=== PATIENT | female | born 1955 | race Caucasian/White ===

== ENCOUNTER 2020-10-21 13:09 | Emergency (ER) | payer OTHER ==
--- NOTE | 2020-10-21 15:11 | RAD REPORT ---
EXAM DESCRIPTION: RAD - Foot Right 3 View - 10/21/2020 3:01 pm CLINICAL HISTORY: PAIN COMPARISON: No comparisons FINDINGS: Mild hallux valgus deformity is seen. Slightly impacted fracture of the distal aspect of t he proximal phalanx of the fifth toe is seen. Mild surrounding soft tissue swelling.
--- NOTE | 2020-10-21 15:12 | ER ---
Nurse's Notes [facility] Name: Danelle Gray Age: 64 yrs Sex: Female : 1955 Arrival Date: 10/21/2020 Time: 13:18 Bed 5 Private MD: Diagnosis: Displaced fracture of proximal phalanx of right lesser toe(s) Presentation: 10/21 13:30 Chief complaint: Patient states: Hit R foot 5th digit on coffee table last night at ll1 2200. Pain and swelling to digit since. Coronavirus screen: Client denies travel out of the [place] in the last 14 days. At this time, the client does not indicate any symptoms associated with coronavirus-19. Ebola Screen: Patient denies travel to an Ebola-affected area in the 21 days before illness onset. Initial Sepsis Screen: Does the patient meet any 2 criteria? No. Patient's initial sepsis screen is negative. Does the patient have a suspected source of infection? Yes: Bone or joint infection. Risk Assessment: Do you want to hurt yourself or someone else? Patient reports no desire to harm self or others. Onset of symptoms was October 20, 2020. 13:30 Method Of Arrival: Ambulatory ll1 13:30 Acuity: GUILHERME 3 ll1 Triage Assessment: 13:32 General: Appears in no apparent distress. Behavior is calm, cooperative, appropriate ll1 for age. Pain: Complains of pain in R foot 5th digit Quality of pain is described as aching, Aggravated by increased activity. Musculoskeletal: Circulation, motion, and sensation intact. Capillary refill < 3 seconds, Range of motion: intact in all extremities, Reports pain in R foot 5th digit. Injury Description: Bruise. Historical: - Allergies: 13:30 No Known Allergies; ll1 - PMHx: 13:30 None; ll1 - PSHx: 13:30 Hysterectomy; Appendectomy; ll1 - Immunization history:: Flu vaccine is up to date. - Social history:: Smoking status: Patient reports the use of cigarette tobacco products, smokes one pack cigarettes per day. Screenin:45 Abuse screen: Denies threats or abuse. Nutritional screening: No deficits noted. aa5 Tuberculosis screening: No symptoms or risk factors identified. Fall Risk None identified. Assessment: 14:45 General: Appears comfortable, Behavior is calm, cooperative. Pain: Complains of pain in aa5 right fifth toe Pain currently is 5 out of 10 on a pain scale. Quality of pain is described as aching, throbbing. Neuro: Level of Consciousness is awake, alert, obeys commands, Oriented to person, place, time, situation, Appropriate for age. Cardiovascular: Patient's skin is warm and dry. Respiratory: Airway is patent Respiratory effort is even, unlabored, Respiratory pattern is regular, symmetrical. GI: No signs and/or symptoms were reported involving the gastrointestinal system. : No signs and/or symptoms were reported regarding the genitourinary system. EENT: No signs and/or symptoms were reported regarding the EENT system. Derm: Skin is pink, warm \T\ dry. Musculoskeletal: Range of motion: intact in all extremities, Redness and mild swelling noted to right fifth toe Reports pain in right fifth toe. 15:30 Reassessment: 4th and 5th R toes matt taped per MOLDER SWEEP. aa5 15:32 Reassessment: Patient is alert, oriented x 3, equal unlabored respirations, skin aa5 warm/dry/pink. Vital Signs: 13:30 Pulse 70; Resp 16; Temp 97.0; Pulse Ox 98% ; ll1 13:32 BP 185 / 106; Weight 65.77 kg; Height 5 ft. 4 in. (162.56 cm); Pain 5/10; ll1 15:28 BP 181 / 110; Pulse 75; Resp 18 S; Pulse Ox 99% on R/A; aa5 13:32 Body Mass Index 24.89 (65.77 kg, 162.56 cm) ll1 15:28 MOLDER SWEEP notified of elevated BP before d/c home aa5 ED Course: 13:18 Patient arrived in ED. rg4 13:29 Arm band placed on. ll1 13:31 Triage completed. ll1 14:04 Brigida Aguirre FNP-C is [facility]. kb 14:04 Fitz Thornton MD is Attending Physician. kb 14:29 Natalya Bejarano, RN is Primary Nurse. aa5 15:01 Foot Right 3 View XRAY In Process Unspecified. EDMS 15:30 No provider procedures requiring assistance completed. Patient did not have IV access aa5 during this emergency room visit. Administered Medications: No medications were administered Outcome: 15:11 Discharge ordered by . kb 15:31 Discharged to home ambulatory. aa5 15:31 Condition: good 15:31 Discharge instructions given to patient, Instructed on discharge instructions, follow up and referral plans. Demonstrated understanding of instructions, follow-up care, Pt instructed to continue to monitor BP at home and to f/u with PCP regarding elevated BP 15:32 Patient left the ED. Signatures: Dispatcher [employer] EDVT Brigida Aguirre, VISHAL-C SOLAR INSTALLER TECHNICIAN-Natalya Fitzpatrick RN RN aa5 Majo Sanders, RN RN Adrianna Ponce4 Joan Bee RN RN ll1
--- NOTE | 2020-10-21 15:12 | EDPHYS ---
Physician Documentation [facility] Name: Danelle Gray Age: 64 yrs Sex: Female : 1955 Arrival Date: 10/21/2020 Time: 13:18 Bed 5 Private MD: ED Physician Fitz Thornton HPI: 10/21 15:10 This 64 yrs old Female presents to ER via Ambulatory with complaints of Toe kb Injury. 15:10 The patient presents with an injury, pain, swelling, tenderness. The complaints affect kb the right foot. Context: The problem was sustained at home, resulted from stubbing toe on furniture. the patient can fully bear weight, the patient is able to ambulate. Onset: The symptoms/episode began/occurred yesterday. Modifying factors: The symptoms are alleviated by nothing, the symptoms are aggravated by movement. Associated signs and symptoms: Pertinent positives: swelling, Pertinent negatives: calf tenderness, fever, nausea, numbness, rash, tingling, vomiting, warmth, weakness. Severity of symptoms: At their worst the symptoms were mild, in the emergency department the symptoms are unchanged. The patient has not experienced similar symptoms in the past. The patient has not recently seen a physician. Historical: - Allergies: 13:30 No Known Allergies; ll1 - PMHx: 13:30 None; ll1 - PSHx: 13:30 Hysterectomy; Appendectomy; ll1 - Immunization history:: Flu vaccine is up to date. - Social history:: Smoking status: Patient reports the use of cigarette tobacco products, smokes one pack cigarettes per day. ROS: 15:06 Constitutional: Negative for fever, chills, and weight loss, Cardiovascular: Negative kb for chest pain, palpitations, and edema, Respiratory: Negative for shortness of breath, cough, wheezing, and pleuritic chest pain, Abdomen/GI: Negative for abdominal pain, nausea, vomiting, diarrhea, and constipation, Skin: Negative for injury, rash, and discoloration, Neuro: Negative for headache, weakness, numbness, tingling, and seizure. 15:06 MS/extremity: Positive for injury or acute deformity, decreased range of motion, erythema, pain, swelling, tenderness, of the right fifth toe. Exam: 15:09 Constitutional: This is a well developed, well nourished patient who is awake, alert, kb and in no acute distress. Head/Face: Normocephalic, atraumatic. Chest/axilla: Normal chest wall appearance and motion. Nontender with no deformity. No lesions are appreciated. Cardiovascular: Regular rate and rhythm with a normal S1 and S2. No gallops, murmurs, or rubs. Normal PMI, no JVD. No pulse deficits. Respiratory: Lungs have equal breath sounds bilaterally, clear to auscultation and percussion. No rales, rhonchi or wheezes noted. No increased work of breathing, no retractions or nasal flaring. Abdomen/GI: Soft, non-tender, with normal bowel sounds. No distension or tympany. No guarding or rebound. No evidence of tenderness throughout. Skin: Warm, dry with normal turgor. Normal color with no rashes, no lesions, and no evidence of cellulitis. Neuro: Awake and alert, GCS 15, oriented to person, place, time, and situation. Cranial nerves II-XII grossly intact. Motor strength 5/5 in all extremities. Sensory grossly intact. Cerebellar exam normal. Normal gait. 15:09 Musculoskeletal/extremity: Extremities: grossly normal except: noted in the right fifth toe: decreased ROM, erythema, pain, swelling, tenderness, ROM: limited active range of motion due to pain, Circulation is intact in all extremities. Sensation intact. Vital Signs: 13:30 Pulse 70; Resp 16; Temp 97.0; Pulse Ox 98% ; ll1 13:32 BP 185 / 106; Weight 65.77 kg; Height 5 ft. 4 in. (162.56 cm); Pain 5/10; ll1 15:28 BP 181 / 110; Pulse 75; Resp 18 S; Pulse Ox 99% on R/A; aa5 13:32 Body Mass Index 24.89 (65.77 kg, 162.56 cm) ll1 15:28 BOTTOM STOP ATTACHER notified of elevated BP before d/c home aa5 MDM: 14:29 Patient medically screened. kb 15:08 Data reviewed: vital signs, nurses notes. Data interpreted: Pulse oximetry: on room air kb is 98 %. Interpretation: normal. Test interpretation: by ED physician or midlevel provider: plain radiologic studies, fracture of fifth proximal phalanx right foot. Counseling: I had a detailed discussion with the patient and/or guardian regarding: the historical points, exam findings, and any diagnostic results supporting the discharge/admit diagnosis, radiology results, the need for outpatient follow up, a orthopedic surgeon, to return to the emergency department if symptoms worsen or persist or if there are any questions or concerns that arise at home. 10/21 13:39 Order name: Foot Right 3 View XRAY; Complete Time: 15:13 kb 10/21 15:12 Order name: [facility]. Order: matt tape 4th and 5th toes ; Complete Time: 15:32 kb Administered Medications: No medications were administered Disposition: 10/22 14:22 Co-signature as Attending Physician, Fitz Thornton MD I agree with the assessment and kdr plan of care. Disposition: 10/21/20 15:11 Discharged to Home. Impression: Displaced fracture of proximal phalanx of right lesser toe(s). - Condition is Stable. - Discharge Instructions: Toe Fracture, [id number]. - Medication Reconciliation Form, Thank You Letter, Antibiotic Education, Prescription Opioid Use form. - Follow up: Emergency Department; When: As needed; Reason: Worsening of condition. Follow up: Private Physician; When: 2 - 3 days; Reason: Recheck today's complaints, Continuance of care, Re-evaluation by your physician. Signatures: Dispatcher [employer] EDMS Brigida Aguirre, LAPPER-C LAPPER-Jimmyb Fitz Thornton MD MD [facility] Majo Sanders RN RN Joan Myers RN RN ll1 Corrections: (The following items were deleted from the chart) 10/21 15:32 15:11 10/21/2020 15:11 Discharged to Home. Impression: Displaced fracture of proximal hb phalanx of right lesser toe(s). Condition is Stable. Forms are Medication Reconciliation Form, Thank You Letter, Antibiotic Education, Prescription Opioid Use. Follow up: Emergency Department; When: As needed; Reason: Worsening of condition. Follow up: Private Physician; When: 2 - 3 days; Reason: Recheck today's complaints, Continuance of care, Re-evaluation by your physician. kb
[2020-10-21 15:39] VITALS: TEMP 97; O2SAT 98
[2020-10-21 15:40] VITALS: BP 185/106
== END 2020-10-21 15:32 | disposition home or self-care (01) ==
LOC: ER 13:09
DX: S92.511A Displaced fracture of proximal phalanx of right lesser toe(s), initial encounter for closed fracture (principal); W22.03XA Walked into furniture, initial encounter; Y93.9 Activity, unspecified; Y92.9 Unspecified place or not applicable; F17.210 Nicotine dependence, cigarettes, uncomplicated
CPT/HCPCS: 99283

== ENCOUNTER 2022-04-06 08:34 | Emergency (ER) | payer BC ==
[2022-04-06] MEDS ORDERED: DIPHENHYDRAMINE 50 MG/ML VIAL ONE (09:05)
[2022-04-06] MEDS ORDERED: METHYLPREDNISOLONE 125 MG INJ ONE (09:05)
[2022-04-06] MEDS ORDERED: FAMOTIDINE 20 MG/2 ML VIAL IV ONE (09:05)
[2022-04-06] MEDS ORDERED: HYDRALAZINE HCL 20 MG/ML VIAL ONE (10:37)
--- NOTE | 2022-04-06 11:02 | ER ---
Nurse's Notes [facility] Name: Danelle Gray Age: 66 yrs Sex: Female : 1955 Arrival Date: 04/06/2022 Time: 08:35 Bed 7 Private MD: Diagnosis: Acute Allergic Reaction, Hypertenisve Heart Disease Presentation: 04/06 08:45 Chief complaint: Patient states: noticed a stinging felling yesterday near Right hip vg1 and later saw a whelp; states the next day notice a whelp on inner Left thigh and on back of Left shoulder. Denies SOB or sore throat. Coronavirus screen: Vaccine status: Patient reports receiving the 2nd dose of the covid vaccine. Client denies travel out of the [place] in the last 14 days. Ebola Screen: Patient denies exposure to infectious person. Patient denies travel to an Ebola-affected area in the 21 days before illness onset. Onset: The symptoms/episode began/occurred yesterday. Anaphylaxis evaluation, no signs or symptoms of anaphylaxis were noted. Initial Sepsis Screen: Does the patient meet any 2 criteria? No. Patient's initial sepsis screen is negative. Does the patient have a suspected source of infection? No. Patient's initial sepsis screen is negative. Risk Assessment: Do you want to hurt yourself or someone else? Patient reports no desire to harm self or others. Onset of symptoms was April 05, 2022. 08:45 Method Of Arrival: Ambulatory vg1 08:45 Acuity: GUILHERME 4 vg1 Triage Assessment: 08:45 General: Appears in no apparent distress. comfortable, Behavior is calm, cooperative. vg1 Pain: Denies pain. EENT: Throat is clear. Respiratory: Airway is patent Respiratory effort is even, unlabored. Derm: appears to have raised whelps on Right leg, left leg and left shoulder, red in color and warm to touch. Historical: - Allergies: 08:42 No Known Allergies; ph - Immunization history:: Client reports receiving the 2nd dose of the Covid vaccine. - Social history:: Smoking status: Patient reports the use of cigarette tobacco products, smokes one pack cigarettes per day. Screenin:55 Abuse screen: Denies threats or abuse. Denies injuries from another. Nutritional ph screening: No deficits noted. Tuberculosis screening: No symptoms or risk factors identified. Fall Risk None identified. Assessment: 08:52 General: Appears in no apparent distress. comfortable, well groomed, Behavior is calm, ph cooperative, appropriate for age, Denies fever, feeling ill. Pain: Denies pain. Neuro: Level of Consciousness is awake, alert, obeys commands, Oriented to person, place, time, situation. Cardiovascular: Capillary refill < 3 seconds in bilateral fingers Patient's skin is warm and dry. Respiratory: Airway is patent Respiratory effort is even, unlabored, Respiratory pattern is regular, symmetrical, Breath sounds are clear bilaterally. Denies shortness of breath. GI: No signs and/or symptoms were reported involving the gastrointestinal system. Derm: Skin is healthy with good turgor, Skin is pink, warm \T\ dry. Rash noted that is red, raised, on right femoral area, right inguinal area, right iliac crest and right hip. Derm: Rash noted that is red, raised, on left inner thigh. Derm: Rash noted that is red, raised, on left scapular area. Musculoskeletal: Circulation, motion, and sensation intact. Range of motion: intact in all extremities. 10:52 Reassessment: Patient appears in no apparent distress at this time. Patient and/or ph family updated on plan of care and expected duration. Pain level reassessed. Patient is alert, oriented x 3, equal unlabored respirations, skin warm/dry/pink. Redness to thighs has improved, slight redness and swelling still noted Patient denies pain at this time. Vital Signs: 08:45 Pulse 90; Resp 16; Temp 98.3; Pulse Ox 100% ; Weight 65.77 kg; Height 5 ft. 4 in. vg1 (162.56 cm); Pain 0/10; 08:52 BP 221 / 104; ph 10:40 BP 170 / 102; Pulse 76; Resp 15; Pulse Ox 97% ; jl7 08:45 Body Mass Index 24.89 (65.77 kg, 162.56 cm) vg1 ED Course: 08:35 Patient arrived in ED. mr 08:36 Fitz Thornton MD is Attending Physician. kdr 08:42 Shweta Melissa RN is Primary Nurse. ph 08:45 Arm band placed on. vg1 08:48 Triage completed. vg1 08:55 Patient has correct armband on for positive identification. Bed in low position. Call ph light in reach. Side rails up X 1. Pulse ox on. NIBP on. Door closed. Noise minimized. Warm blanket given. 09:10 Inserted saline lock: 22 gauge in right forearm, using aseptic technique. ph 11:17 No provider procedures requiring assistance completed. IV discontinued, intact, ph bleeding controlled, No redness/swelling at site. Pressure dressing applied. Administered Medications: 09:07 Drug: SOLU-Medrol (methylPrednisoLONE) 125 mg Route: IVP; Site: right forearm; ph 10:50 Follow up: Response: No adverse reaction ph 09:08 Drug: Benadryl (diphenhydrAMINE) 25 mg Route: IVP; Site: right forearm; ph 10:50 Follow up: Response: No adverse reaction ph 09:10 Drug: Pepcid (famotidine) 20 mg Route: IVP; Site: right forearm; ph 10:50 Follow up: Response: No adverse reaction ph 10:40 Drug: hydrALAZINE 20 mg Route: IVP; Site: right forearm; ph 11:16 Follow up: Response: No adverse reaction; Blood pressure is lowered ph 11:16 Drug: Lisinopril 20 mg Route: PO; ph 11:17 Follow up: Response: No adverse reaction ph Medication: 08:55 VIS not applicable for this client. ph Outcome: 11:02 Discharge ordered by . kdr 11:17 Discharged to home ambulatory. ph 11:17 Condition: good 11:17 Discharge instructions given to patient, Instructed on discharge instructions, follow up and referral plans. medication usage, Demonstrated understanding of instructions, follow-up care, medications, Prescriptions given X 4. 11:17 Patient left the ED. ph Signatures: Fitz Thornton MD MD kdr Rivera, Janelle Shweta Melissa, RN RN ph Selina Benedict, RN RN jl7 Sury Goldberg, RN RN vg1
--- NOTE | 2022-04-06 11:02 | EDPHYS ---
Physician Documentation [facility] Name: Danelle Gray Age: 66 yrs Sex: Female : 1955 Arrival Date: 04/06/2022 Time: 08:35 Bed 7 Private MD: ED Physician Fitz Thornton HPI: 04/06 09:17 This 66 yrs old Female presents to ER via Ambulatory with complaints of Allergic kdr Reaction. 09:17 This 66 yrs old Female presents to ER via Ambulatory with complaints of Allergic kdr Reaction. 09:17 The patient presents with diffuse swelling, itching, rash, Hives. Onset: The kdr symptoms/episode began/occurred yesterday. Associated signs and symptoms: The patient has no apparent associated signs or symptoms. Possible causes: The patient has no known obvious cause for the symptoms. At home the patient or guardian has treated the symptoms with Benadryl. Severity of symptoms: At their worst the symptoms were mild moderate just prior to arrival, in the emergency department the symptoms are unchanged. The patient has not experienced similar symptoms in the past. The patient has not recently seen a physician. Patient noticed an irritation on the right anterior hip yesterday. Subsequently she started to notice some red raised hives around that area which is subsequently spread to her medial proximal thigh on the left as well as her posterior left shoulder. She denies any shortness of breath or other respiratory difficulty. She has not had symptoms like this before. She is otherwise in her usual state of health. Historical: - Allergies: 08:42 No Known Allergies; ph - Immunization history:: Client reports receiving the 2nd dose of the Covid vaccine. - Social history:: Smoking status: Patient reports the use of cigarette tobacco products, smokes one pack cigarettes per day. ROS: 09:17 Constitutional: Negative for fever, chills, and weight loss, Eyes: Negative for injury, kdr pain, redness, and discharge, ENT: Negative for injury, pain, and discharge, Neck: Negative for injury, pain, and swelling, Cardiovascular: Negative for chest pain, palpitations, and edema, Respiratory: Negative for shortness of breath, cough, wheezing, and pleuritic chest pain, Abdomen/GI: Negative for abdominal pain, nausea, vomiting, diarrhea, and constipation, Back: Negative for injury and pain, : Negative for injury, bleeding, discharge, and swelling, MS/Extremity: Negative for injury and deformity, Neuro: Negative for headache, weakness, numbness, tingling, and seizure activity. Psych: Negative for depression, anxiety, suicide ideation, homicidal ideation, and hallucinations, Allergy/Immunology: Negative for hives, rash, and allergies, Endocrine: Negative for neck swelling, polydipsia, polyuria, polyphagia, and marked weight changes, Hematologic/Lymphatic: Negative for swollen nodes, abnormal bleeding, and unusual bruising. 09:17 Skin: Positive for rash, Negative for abrasions, abscesses, avulsion. Exam: :17 Constitutional: This is a well developed, well nourished patient who is awake, alert, kdr and in no acute distress. Head/Face: Normocephalic, atraumatic. Eyes: Pupils equal round and reactive to light, extra-ocular motions intact. Lids and lashes normal. Conjunctiva and sclera are non-icteric and not injected. Cornea within normal limits. Periorbital areas with no swelling, redness, or edema. Neck: Trachea midline, no thyromegaly or masses palpated, and no cervical lymphadenopathy. Supple, full range of motion without nuchal rigidity, or vertebral point tenderness. No Meningismus. Chest/axilla: Normal chest wall appearance and motion. Nontender with no deformity. No lesions are appreciated. Cardiovascular: Regular rate and rhythm with a normal S1 and S2. No gallops, murmurs, or rubs. Normal PMI, no JVD. No pulse deficits. Respiratory: Lungs have equal breath sounds bilaterally, clear to auscultation and percussion. No rales, rhonchi or wheezes noted. No increased work of breathing, no retractions or nasal flaring. Abdomen/GI: Soft, non-tender, with normal bowel sounds. No distension or tympany. No guarding or rebound. No evidence of tenderness throughout. Back: No spinal tenderness. No costovertebral tenderness. Full range of motion. MS/ Extremity: Pulses equal, no cyanosis. Neurovascular intact. Full, normal range of motion. Neuro: Awake and alert, GCS 15, oriented to person, place, time, and situation. Cranial nerves II-XII grossly intact. Motor strength 5/5 in all extremities. Sensory grossly intact. Cerebellar exam normal. Normal gait. Psych: Awake, alert, with orientation to person, place and time. Behavior, mood, and affect are within normal limits. 09:17 Skin: rash a mild rash is noted, rash can be described as erythematous, macular. Vital Signs: 08:45 Pulse 90; Resp 16; Temp 98.3; Pulse Ox 100% ; Weight 65.77 kg; Height 5 ft. 4 in. vg1 (162.56 cm); Pain 0/10; 08:52 BP 221 / 104; ph 10:40 BP 170 / 102; Pulse 76; Resp 15; Pulse Ox 97% ; jl7 08:45 Body Mass Index 24.89 (65.77 kg, 162.56 cm) vg1 MDM: 11:00 Data reviewed: vital signs, nurses notes. Counseling: I had a detailed discussion with kdr the patient and/or guardian regarding: the historical points, exam findings, and any diagnostic results supporting the discharge/admit diagnosis, lab results, radiology results. ED course: Patient proved with the interventions given. She was feeling much better at time of discharge. She was happy with the care provided the plan for discharge and follow-up.. 11:02 Patient medically screened. kdr Administered Medications: 09:07 Drug: SOLU-Medrol (methylPrednisoLONE) 125 mg Route: IVP; Site: right forearm; ph 10:50 Follow up: Response: No adverse reaction ph 09:08 Drug: Benadryl (diphenhydrAMINE) 25 mg Route: IVP; Site: right forearm; ph 10:50 Follow up: Response: No adverse reaction ph 09:10 Drug: Pepcid (famotidine) 20 mg Route: IVP; Site: right forearm; ph 10:50 Follow up: Response: No adverse reaction ph 10:40 Drug: hydrALAZINE 20 mg Route: IVP; Site: right forearm; ph 11:16 Follow up: Response: No adverse reaction; Blood pressure is lowered ph 11:16 Drug: Lisinopril 20 mg Route: PO; ph 11:17 Follow up: Response: No adverse reaction ph Disposition Summary: 04/06/22 11:02 Discharge Ordered Location: Home kdr Problem: new kdr Symptoms: have improved kdr Condition: Stable kdr Diagnosis - Acute Allergic Reaction, Hypertenisve Heart Disease kdr Followup: kdr - With: Private Physician - When: 2 - 3 days - Reason: If symptoms return, Further diagnostic work-up, Recheck today's complaints, Continuance of care, Re-evaluation by your physician Discharge Instructions: - Discharge Summary Sheet kdr - Hypertension, Adult, [id number] kdr - Allergies, Adult, [id number] kdr Forms: - Medication Reconciliation Form kdr - Thank You Letter kdr Prescriptions: - Benadryl 25 mg Oral Capsule - take 1 capsule by ORAL route every 6 hours As needed; 30 tablet; Refills: 0, kdr Product Selection Permitted - Lisinopril 20 mg Oral Tablet - take 1 tablet by ORAL route once daily; 20 tablet; Refills: 0, Product kdr Selection Permitted - Medrol (Kishan) 4 mg Oral Tablets, Dose Pack - take 1 tablet by ORAL route as directed - follow package instructions; 1 kdr packet; Refills: 0, Product Selection Permitted - Pepcid 20 mg Oral Tablet - take 1 tablet by ORAL route once daily; 20 tablet; Refills: 0, Product kdr Selection Permitted Signatures: Fitz Thornton MD MD kdr Hall, Patricia, RN RN Sury Jaeger RN RN vg1
[2022-04-06] MEDS ORDERED: lisinopriL 20 MG TAB ONE (11:17)
[2022-04-06 11:38] VITALS: TEMP 98.3
[2022-04-06 11:41] VITALS: BP 170/102; O2SAT 97
== END 2022-04-06 11:17 | disposition home or self-care (01) ==
LOC: ER 08:34
DX: R21 Rash and other nonspecific skin eruption (principal); I11.9 Hypertensive heart disease without heart failure; F17.210 Nicotine dependence, cigarettes, uncomplicated
CPT/HCPCS: 96375; 96374; 99284; J0360; J1200; J2930; J3490

== ENCOUNTER 2022-09-22 16:15 | Observation (INO) | payer BC ==
--- OUTSIDE RECORDS SUMMARY | 2022-09-22 16:17 | XMS REPORT | Continuity of Care Document ---
:1955 Author Organization [facility] t Address [address] [place] [address] Dr. Dug[address] [place] [address] Care Team Providers Name Role Phone Unavailable Unavailable Unavailable Problems This patient has no known problems. Allergies, Adverse Reactions, Alerts This patient has no known allergies or adverse reactions. Medications This patient has no known medications. Procedures This patient has no known procedures. Encounters Start End Encounter Admission Attending Care Care Encounter Source Date/Time Date/Time Type Type Clinicians Facility Department ID 2021-11-08 Outpatient [facility] [id number] Common 08:56:03 [facility] Results This patient has no known results.
[2022-09-22] MEDS ORDERED: MAGNESIUM SULFATE 1 gm IVPB 1 GM/100 ML BAG IV ONE (16:54)
[2022-09-22] MEDS ORDERED: LEVALBUTEROL 1.25 MG/3 ML NEB ONE (16:54)
[2022-09-22] MEDS ORDERED: lisinopriL 10 MG TAB ONE (17:23)
[2022-09-22 17:29] LABS: Absolute Lymphocytes (CBC) 0.3 K/uL (0.7-4.9); Hematocrit 48.8 % (36.0-45.0); Lymphocytes % 4.1 % (15.3-44.8); MCV 94.8 fL (80-100); MPV 7.9 fL (7.6-11.3); RBC Red Blood Cell Count 5.15 M/uL (3.86-4.86)
[2022-09-22 17:35] LABS: Protime INR 0.98
--- NOTE | 2022-09-22 17:35 | RAD REPORT ---
EXAM DESCRIPTION: Valentino Single View09/22/2022 5:23 pm CLINICAL HISTORY: Shortness of breath COMPARISON: 2013 FINDINGS: The lungs appear clear of acute infiltrate. The heart is normal size IMPRESSION: No acute abnormalities displayed
[2022-09-22 17:51] LABS: Albumin 4.1 g/dL (3.4-5.0); Bilirubin Direct 0.1 mg/dL (0-0.2); Bilirubin Total 0.4 mg/dL (0.2-1.0); Magnesium 1.9 mg/dL (1.6-2.4); Potassium 3.6 mmol/L (3.5-5.1); Protein, Total 8.3 g/dL (6.4-8.2); Troponin High Sensitivity 10.1 pg/mL (<58.9)
[2022-09-22 18:06] LABS: SARS-COV-2 RT PCR NEGATIVE (NEGATIVE)
[2022-09-22] MEDS ORDERED: OSELTAMIVIR 75 MG CAP PO ONE (18:32)
--- NOTE | 2022-09-22 18:43 | RAD REPORT ---
EXAM DESCRIPTION: CT - Chest For Pe Angio - 09/22/2022 6:33 pm CLINICAL HISTORY: sob COMPARISON: None. TECHNIQUE: Dynamically enhanced axial 3 mm thick images of the chest were obtained during administra tion of <100> mL Isovue 370 IV contrast. Coronal and oblique reconstruction images were generated and reviewed. Exam utilizes a protocol for optimal evaluation of pulmonary arterial tree. Maximum intensity projections 3D imaging was utilized All CT scans are performed using dose optimization technique as appropriate and may include automated exposure control or mA/KV adjustment according to patient size. FINDINGS: A pulmonary embolus is not seen. A thoracic aortic aneurysm is not noted. A pleural effusion is not seen. A pericardial effusion is not seen. A lung consolidation is not present. Moderate COPD IMPRESSION: Negative for a pulmonary embolism.
--- NOTE | 2022-09-22 19:07 | EDPHYS ---
Physician Documentation [facility] Name: Danelle Gray Age: 66 yrs Sex: Female : 1955 Arrival Date: 09/22/2022 Time: 16:18 Bed 3 Private MD: ED Physician Mike Kaye HPI: 09/22 16:45 This 66 yrs old Female presents to ER via Ambulatory with complaints of Shortness Of jmm Breath, O2-92. 16:45 Onset: The symptoms/episode began/occurred gradually. jmm 16:45 Duration: The symptoms are continuous. The patient's shortness of breath is aggravated jmm by nothing, is alleviated by nothing. This is a 66 year old female with a history of htn, that presents to the ED with complaints of cough, congestion beginning yesterday with sob beginning today. Home pulse ox reading was 92%. Denies fever but states having body aches, with an episode of vomiting last night.. Historical: - Allergies: 16:46 No Known Allergies; ph - PMHx: 16:46 Hypertensive disorder; ph - Immunization history:: Adult Immunizations up to date. - Social history:: Smoking status: Patient reports the use of cigarette tobacco products, smokes one pack cigarettes per day. ROS: 16:45 Constitutional: Negative for fever, chills, and weight loss. jmm 16:45 ENT: Positive for sinus congestion. 16:45 Respiratory: Positive for cough, shortness of breath. 16:45 All other systems are negative. Exam: 16:45 Head/Face: atraumatic. Eyes: EOMI, no conjunctival erythema appreciated ENT: Moist jmm Mucus Membranes Neck: Trachea midline, Supple Chest/axilla: Normal chest wall appearance and motion. 16:45 Abdomen/GI: Non distended Back: Normal ROM Skin: General appearance color normal 16:45 Constitutional: The patient appears alert, awake, uncomfortable. 16:45 Cardiovascular: Rate: tachycardic, Rhythm: regular. 16:45 Respiratory: moderate respiratory distress is noted, Respirations: labored breathing, that is mild. 16:45 Musculoskeletal/extremity: ROM: intact in all extremities. 16:45 Skin: Appearance: Color: normal in color. 16:45 Neuro: Motor: is normal. 16:45 Psych: Behavior/mood is pleasant, cooperative. Vital Signs: 16:45 BP 233 / 115; Pulse 107; Resp 24; Temp 98.4; Pulse Ox 93% on R/A; Weight 66.22 kg; ph Height 5 ft. 4 in. (162.56 cm); 17:35 BP 181 / 99; Pulse 104; Resp 35 S; Temp 98.5(O); Pulse Ox 100% on 2 lpm NC; Pain 0/10; kc6 18:40 BP 185 / 86; Pulse 106; Resp 32 S; Pulse Ox 98% on 2 lpm NC; kc6 21:03 BP 131 / 69; Pulse 110; Resp 19 S; Pulse Ox 99% on 2 lpm NC; aa9 16:45 Body Mass Index 25.06 (66.22 kg, 162.56 cm) ph MDM: 16:45 Patient medically screened. [facility] 19:05 Data reviewed: vital signs, nurses notes. Counseling: I had a detailed discussion with [facility] the patient and/or guardian regarding: the historical points, exam findings, and any diagnostic results supporting the discharge/admit diagnosis, lab results, radiology results, the need for further work-up and treatment in the hospital. ED course: I discussed the patient with Ashley Schwarz whom accepted the patient to Dr. Guerrero's service. . 09/22 16:46 Order name: Basic Metabolic Panel; Complete Time: 17:51 [facility] 09/22 16:46 Order name: CBC with Diff; Complete Time: 17:32 [facility] 09/22 16:46 Order name: LFT's; Complete Time: 17:51 [facility] 09/22 16:46 Order name: Magnesium; Complete Time: 17:51 [facility] 09/22 16:46 Order name: NT PRO-BNP; Complete Time: 17:51 [facility] 09/22 16:46 Order name: PT-INR; Complete Time: 17:37 [facility] 09/22 16:46 Order name: Troponin HS; Complete Time: 17:51 [facility] 09/22 16:46 Order name: XRAY Chest (1 view); Complete Time: 17:37 [facility] 09/22 16:46 Order name: Lactate w/ 2H reflex if indic.; Complete Time: 17:57 [facility] 09/22 16:46 Order name: Blood Culture Adult (2) [facility] 09/22 16:50 Order name: COVID-19/FLU A+B; Complete Time: 18:14 [facility] 09/22 17:50 Order name: CT Chest For PE Angio; Complete Time: 18:46 [facility] 09/22 16:46 Order name: EKG; Complete Time: 16:47 [facility] 09/22 16:46 Order name: Cardiac monitoring; Complete Time: 16:58 [facility] 09/22 16:46 Order name: EKG - Nurse/Tech; Complete Time: 19:07 [facility] 09/22 16:46 Order name: IV Saline Lock; Complete Time: 17:20 [facility] 09/22 16:46 Order name: Labs collected and sent; Complete Time: 17:20 [facility] 09/22 16:46 Order name: O2 Per Protocol; Complete Time: 16:58 [facility] 09/22 16:46 Order name: O2 Sat Monitoring; Complete Time: 16:58 [facility] Administered Medications: 16:58 Drug: Xopenex (levalbuterol) (3) 1.25 mg Route: Inhalation; kc6 18:29 Follow up: Response: No adverse reaction kc6 17:33 Drug: Magnesium Sulfate 1 grams Route: IVPB; Infused Over: 1 hrs; Site: right kc6 antecubital; 17:33 Drug: Lisinopril 10 mg Route: PO; kc6 18:28 Follow up: Response: No adverse reaction 6 18:32 Drug: Tamiflu (oseltamivir) 75 mg Route: PO; kc6 19:29 Drug: SOLU-Medrol (methylPrednisoLONE) 125 mg Route: IVP; Site: right antecubital; ll3 Disposition: 09/23 19:40 Co-signature as Attending Physician, Mike Kaye MD. rn Disposition Summary: 09/22/22 19:06 Hospitalization Ordered Hospitalization Status: Observation jm Provider: Sina Geurrero Location: Telemetry/MedSurg (observation) jmm Condition: Stable jmm Problem: new jmm Symptoms: have improved jmm Bed/Room Type: Standard [facility] Room Assignment: 217(09/22/22 19:55) mw Diagnosis - COPD/ Chronic obstructive pulmonary disease with (acute) exacerbation jmm - Influenza jmm Forms: - Medication Reconciliation Form jmm - SBAR form jmm Signatures: Dispatcher [employer] Becky Cordova RN RN Lino Chapa PA PA Mike Ledesma MD MD rn Hall, Patricia, RN RN Danika Ledesma RN RN ll3 Megan Stubbs RN RN kc6 Corrections: (The following items were deleted from the chart) 09/22 19:43 19:06 [facility] 19:55 19:[address] [place] [address]
--- NOTE | 2022-09-22 19:07 | ER ---
Nurse's Notes [facility] Name: Danelle Gray Age: 66 yrs Sex: Female : 1955 Arrival Date: 09/22/2022 Time: 16:18 Bed 3 Private MD: Diagnosis: COPD/ Chronic obstructive pulmonary disease with (acute) exacerbation;Influenza Presentation: 09/22 16:45 Chief complaint: Patient states: Vomiting yesterday, cough, congestion, SOB, ph generalized weakness, no fevers. Coronavirus screen: Vaccine status: Patient reports receiving the 2nd dose of the covid vaccine. Ebola Screen: No symptoms or risks identified at this time. Initial Sepsis Screen: Does the patient meet any 2 criteria? No. Patient's initial sepsis screen is negative. Does the patient have a suspected source of infection? Yes: Productive cough/pneumonia. Risk Assessment: Do you want to hurt yourself or someone else? Patient reports no desire to harm self or others. Onset of symptoms was September 22, 2022. 16:45 Method Of Arrival: Ambulatory ph 16:45 Acuity: GUILHERME 2 ph Triage Assessment: 20:27 Respiratory: Onset: The symptoms/episode began/occurred gradually, the patient has aa9 moderate shortness of breath. Historical: - Allergies: 16:46 No Known Allergies; ph - PMHx: 16:46 Hypertensive disorder; ph - Immunization history:: Adult Immunizations up to date. - Social history:: Smoking status: Patient reports the use of cigarette tobacco products, smokes one pack cigarettes per day. Screenin:33 [facility] ED Fall Risk Assessment (Adult) History of falling in the last 3 months, kc6 including since admission No falls in past 3 months (0 pts) Confusion or Disorientation No (0 pts) Intoxicated or Sedated No (0 pts) Impaired Gait No (0 pts) Mobility Assist Device Used No (0 pt) Altered Elimination No (0 pt) Score/Fall Risk Level 0 - 2 = Low Risk. Abuse screen: Denies threats or abuse. Denies injuries from another. Nutritional screening: No deficits noted. Tuberculosis screening: No symptoms or risk factors identified. 20:26 Humpty Dumpty Scale Fall Assessment Tool (age< 18yrs) Age 13 years and above (1 pt) aa9 Gender Female (1 pt) Diagnosis Alteration in oxygenation (respiratory diagnosis, dehydration, anemia, anorexia, syncope/dizziness, etc) (3 pts). Fall Risk No fall in past 12 months (0 pts). Assessment: 17:34 General: Appears in no apparent distress. uncomfortable, Behavior is calm, cooperative, kc6 appropriate for age. Pain: Denies pain. Neuro: Suresh Agitation-Sedation Scale (RASS): 0 - Alert and Calm Level of Consciousness is awake, alert, obeys commands, Oriented to person, place, time, situation, Appropriate for age. Cardiovascular: Heart tones S1 S2 present Capillary refill < 3 seconds Rhythm is sinus tachycardia. Respiratory: Reports shortness of breath cough that is dry, Airway is patent Trachea midline Respiratory effort is even, labored, Respiratory pattern is symmetrical, tachypnea Breath sounds with wheezes bilaterally. GI: No signs and/or symptoms were reported involving the gastrointestinal system. : No signs and/or symptoms were reported regarding the genitourinary system. EENT: No signs and/or symptoms were reported regarding the EENT system. Derm: No signs and/or symptoms reported regarding the dermatologic system. Skin is intact, Skin is pink, warm \T\ dry. Musculoskeletal: No signs and/or symptoms reported regarding the musculoskeletal system. Circulation, motion, and sensation intact. Capillary refill < 3 seconds, Range of motion: intact in all extremities. 18:00 Reassessment: Lino MARTE reported no need for second blood culture. jd3 18:34 Reassessment: Patient appears in no apparent distress at this time. No changes from kc6 previously documented assessment. Patient and/or family updated on plan of care and expected duration. Pain level reassessed. Patient is alert, oriented x 3, equal unlabored respirations, skin warm/dry/pink. 20:25 Reassessment: Patient appears in no apparent distress at this time. report provided to aa9 2nd floor charge nurse. General: Appears in no apparent distress. comfortable. Pain: Denies pain. Neuro: Level of Consciousness is awake, alert, obeys commands, Oriented to person, place, time, situation, Appropriate for age. Respiratory: Airway is patent Respiratory effort is even, labored. 21:04 Reassessment: Patient appears in no apparent distress at this time. pt taken to room aa9 217 via wheelchair with nurse on 2 LPM O2, pt stable understands needs for admission. Vital Signs: 16:45 BP 233 / 115; Pulse 107; Resp 24; Temp 98.4; Pulse Ox 93% on R/A; Weight 66.22 kg; ph Height 5 ft. 4 in. (162.56 cm); 17:35 BP 181 / 99; Pulse 104; Resp 35 S; Temp 98.5(O); Pulse Ox 100% on 2 lpm NC; Pain 0/10; kc6 18:40 BP 185 / 86; Pulse 106; Resp 32 S; Pulse Ox 98% on 2 lpm NC; kc6 21:03 BP 131 / 69; Pulse 110; Resp 19 S; Pulse Ox 99% on 2 lpm NC; aa9 16:45 Body Mass Index 25.06 (66.22 kg, 162.56 cm) ph ED Course: 16:18 Patient arrived in ED. mr 16:23 Lino Eckert PA is PHCP. jmm 16:23 Mike Kaye MD is Attending Physician. jmm 16:46 Triage completed. ph 16:47 Arm band placed on Patient placed in an exam room. ph 16:58 Megan Stbubs, RN is Primary Nurse. kc6 17:20 COVID-19/FLU A+B Sent. kc6 17:20 Lactate w/ 2H reflex if indic. Sent. kc6 17:20 Basic Metabolic Panel Sent. kc6 17:20 CBC with Diff Sent. kc6 17:20 LFT's Sent. kc6 17:20 Magnesium Sent. kc6 17:20 NT PRO-BNP Sent. kc6 17:20 PT-INR Sent. kc6 17:20 Troponin HS Sent. kc6 17:20 Inserted saline lock: 22 gauge in right antecubital area, using aseptic technique. kc6 Blood collected. 17:25 XRAY Chest (1 view) In Process Unspecified. EDMS 17:41 Patient has correct armband on for positive identification. Bed in low position. Call kc6 light in reach. Side rails up X2. Adult w/ patient. 18:20 Inserted saline lock: 22 gauge in left antecubital area, using aseptic technique. kc6 ,using aseptic technique. started by CT. 18:35 CT Chest For PE Angio In Process Unspecified. EDMS 19:06 Sina Guerrero is Hospitalizing Provider. jmm 20:26 No provider procedures requiring assistance completed. Patient admitted, IV remains in aa9 place. Administered Medications: 16:58 Drug: Xopenex (levalbuterol) (3) 1.25 mg Route: Inhalation; kc6 18:29 Follow up: Response: No adverse reaction kc6 17:33 Drug: Magnesium Sulfate 1 grams Route: IVPB; Infused Over: 1 hrs; Site: right kc6 antecubital; 17:33 Drug: Lisinopril 10 mg Route: PO; kc6 18:28 Follow up: Response: No adverse reaction kc6 18:32 Drug: Tamiflu (oseltamivir) 75 mg Route: PO; kc6 19:29 Drug: SOLU-Medrol (methylPrednisoLONE) 125 mg Route: IVP; Site: right antecubital; ll3 Medication: 20:26 VIS not applicable for this client. aa9 Outcome: 19:06 Decision to Hospitalize by Provider. jolanta 20:26 Admitted to Med/surg accompanied by tech, via wheelchair, room 217, with chart, Report aa9 called to charge nurse 20:26 Condition: stable 20:26 Instructed on the need for admit. 21:05 Patient left the ED. aa9 Signatures: Dispatcher [employer] EDMS Lino Eckert PA PA jm Cuellar, Janelle mr MelissaShweta, RN El Leyva ph D, RN RN jd3 Loubet, Lynsea, RN RN ll3 Theresa Flynn RN RN aaMegan Aldrich RN RN kc6
[2022-09-22] MEDS ORDERED: METHYLPREDNISOLONE 125 MG INJ ONE (19:23)
--- NOTE | 2022-09-22 19:43 | P.HP ---
Certification for Inpatient Patient admitted to: Observation With expected LOS: <2 Midnights Patient will require the following post-hospital care: None Practitioner: I am a practitioner with admitting privileges, knowledge of patient current condition, hospital course, and medical plan of care. Services: Services provided to patient in accordance with Admission requirements found in Title 42 Section 412.3 of the Code of Federal Regulations Patient History Date of Service: 09/22/22 Reason for admission: Influenza, Hypoxia, COPD History of Present Illness: Patient is a 66 year old female with history of hypertension who presented to the ED with complaints of shortness of breath, congestion, cough. She was noted to be saturating 93% on room air, tachycardic, tachypneic, and hypertensive. Tested positive for influenza A. CTA chest showed COPD without PE or consolidation. Patient was unaware of a COPD diagnosis. She does smoke 1 pack/day. She was given tamiflu, solumedrol, breathing treatment, magnesium and antihypertensives in the ED. She is still requiring supplemental O2 although reports feeling significantly improved. ED provider wishes to admit patient for further management/observation. Allergies No Known Allergies Allergy (Verified 04/27/14 16:38) Home medications list reviewed: Yes Home Medications: Hydrocodone 7.5/APAP 325 [Asotin 7.5/325 mg*] 1 tab PO Q4HP PRN #0 tab 05/03/14 Levofloxacin [Levaquin] 750 mg PO DAILY #10 tablet 05/03/14 - Past Medical/Surgical History Diabetic: No -: Hypertension -: COPD -: Hysterectomy Psychosocial/ Personal History: Patient lives at home with her family. - Family History Father -: Hypertension - Social History Smoking Status: Current every day smoker Alcohol use: Yes CD- Drugs: No Caffeine use: Yes Place of Residence: Home Review of Systems General: Weakness ENT: Nose Congestion Respiratory: Cough, Shortness of Breath Physical Examination - Vital Signs Temperature: 98.5 F Blood Pressure: 185/86 Pulse: 106 Respirations: 32 Pulse Ox (%): 98 (2L NC) - Physical Exam General: Alert, In no apparent distress HEENT: Atraumatic, PERRLA, EOMI, Sclerae nonicteric Neck: Supple, 2+ carotid pulse no bruit, No LAD, Without JVD or thyroid abnormality Respiratory: Expiratory wheezes Cardiovascular: Regular rate/rhythm, Normal S1 S2 Gastrointestinal: Normal bowel sounds, No tenderness Musculoskeletal: No tenderness Integumentary: No rashes Neurological: Normal speech, Normal strength at 5/5 x4 extr, Normal tone, Normal affect - Studies Laboratory Data (last 24 hrs) 09/22/22 17:14: PT 10.8, INR 0.98 09/22/22 17:14: WBC 8.20, Hgb 16.3 H, Hct 48.8 H, Plt Count 253 09/22/22 17:14: Sodium 136, Potassium 3.6, BUN 12, Creatinine 0.76, Glucose 100, Magnesium 1.9, Total Bilirubin 0.4, AST 31, ALT 32, Alkaline Phosphatase 96 Assessment and Plan - Problems (Diagnosis) (1) Acute respiratory failure with hypoxia Current Visit: No Status: Acute (2) Influenza A Current Visit: No Status: Acute (3) Hypertension Current Visit: No Status: Chronic Qualifiers: Hypertension type: primary hypertension Qualified Code(s): I10 - Essential (primary) hypertension (4) COPD (chronic obstructive pulmonary disease) Current Visit: No Status: Chronic Qualifiers: COPD type: unspecified COPD Qualified Code(s): J44.9 - Chronic obstructive pulmonary disease, unspecified - Plan Patient is admitted for observation for management of hypoxia secondary to influenza/COPD. Continue tamiflu, supplemental O2, PRN breathing treatments, antitussives, and guanfenisin. Blood pressure has been high, will likely need medication adjustment on discharge. Hydralazine PRN. Monitor and replete electrolytes per protocol. Reconcile and continue home medications. Lovenox for VTE prophylaxis. Full code Discharge Plan: Home Plan to discharge in: 24 Hours - Advance Directives Does patient have a Living Will: No Does patient have a Durable POA for Healthcare: No - Code Status/Comfort Care Code Status Assessed: Yes Code Status: Full Code Physician Review: Patient Assessed, Agree with Above Assessment and Plan Critical Care: No Time Spent Managing Pts Care (In Minutes): 50
[2022-09-22] MEDS ORDERED: ONDANSETRON 4 MG/2 ML VIAL IV PRN (20:21)
[2022-09-22] MEDS ORDERED: IPRATROPIUM BROM 0.5MG/2.5ML NEB PRN (20:21)
[2022-09-22] MEDS ORDERED: ALBUTEROL 2.5 MG/3 ML NEB SOL NEB PRN (20:21)
[2022-09-22] MEDS ORDERED: NICOTINE 14 MG/PAT TD PRN (20:21)
[2022-09-22] MEDS ORDERED: HYDRALAZINE HCL 20 MG/ML VIAL IV PRN (20:21)
[2022-09-22] MEDS: NA CHLORIDE 0.9% 1,000 ML IV SCH (21:57)
[2022-09-22] MEDS: ACETAMINOPHEN 500 MG TAB PO PRN (22:01)
[2022-09-22] MEDS: GUAIFENESIN 600 MG SA TAB PO PRN (22:02)
[2022-09-22] MEDS: BENZONATATE 100 MG CAP PO PRN (22:02)
[2022-09-22 23:11] VITALS: BMI 25.0
[2022-09-22] MEDS: OSELTAMIVIR 75 MG CAP PO SCH (23:34)
[2022-09-23 01:09] LABS: Specific Gravity > 1.030 (1.005-1.030); Urine Bacteria <20 /HPF (<20); Urine Bilirubin NEGATIVE (Negative); Urine Blood 1+ (Negative); Urine Clarity Clear (Clear); Urine Color Light-Yellow (Yellow); Urine Glucose NEGATIVE (Negative); Urine Protein NEGATIVE (Negative); Urine RBC <5 /HPF (None Seen); Urine Urobilinogen Normal (Normal); Urine pH 5.5 (5.0-7.0)
[2022-09-23 04:12] LABS: Absolute Lymphocytes (CBC) 0.3 K/uL (0.7-4.9); Lymphocytes % 4.1 % (15.3-44.8); MCV 94.9 fL (80-100); MPV 8.1 fL (7.6-11.3); RBC Red Blood Cell Count 4.53 M/uL (3.86-4.86)
[2022-09-23 04:37] LABS: Magnesium 2.3 mg/dL (1.6-2.4); Phosphorus 3.5 mg/dL (2.5-4.9); Thyroid Stimulating Hormone 0.253 uIU/mL (0.358-3.740)
[2022-09-23] MEDS ORDERED: lisinopriL 10 MG TAB PO SCH (09:00)
[2022-09-23] MEDS ORDERED: ENOXAPARIN 40 MG/0.4 ML SQ SCH (09:00)
[2022-09-23] MEDS: OSELTAMIVIR 75 MG CAP PO SCH (09:10)
[2022-09-23] MEDS: BENZONATATE 100 MG CAP PO PRN (09:14)
[2022-09-23] MEDS: NA CHLORIDE 0.9% 1,000 ML IV SCH ×2 (09:41→12:24)
[2022-09-23] MEDS: ACETAMINOPHEN 500 MG TAB PO PRN (12:30)
[2022-09-23] MEDS: GUAIFENESIN 600 MG SA TAB PO PRN (12:30)
--- NOTE | 2022-09-23 16:30 | P.DS ---
Admission Date: 09/22/22 Discharge Date: 09/23/22 Disposition: ROUTINE DISCHARGE Discharge Condition: FAIR Reason for Admission: Influenza, Hypoxia, COPD - Problems (1) Acute respiratory failure with hypoxia Current Visit: No Status: Acute (2) Influenza A Current Visit: No Status: Acute (3) COPD (chronic obstructive pulmonary disease) Current Visit: No Status: Chronic Qualifiers: COPD type: unspecified COPD Qualified Code(s): J44.9 - Chronic obstructive pulmonary disease, unspecified (4) Hypertension Current Visit: No Status: Chronic Qualifiers: Hypertension type: primary hypertension Qualified Code(s): I10 - Essential (primary) hypertension Brief History of Present Illness: Patient is a 66 year old female with history of hypertension who presented to the ED with complaints of shortness of breath, congestion, cough. She was noted to be saturating 93% on room air, tachycardic, tachypneic, and hypertensive. Tested positive for influenza A. CTA chest showed COPD without PE or consolidation. Patient was unaware of a COPD diagnosis. She does smoke 1 pack/day. She was given tamiflu, solumedrol, breathing treatment, magnesium and antihypertensives in the ED. She is still requiring supplemental O2 although reports feeling significantly improved. Patient hospitalized for further management. Hospital Course: Patient placed under observation on the medical floor and treated for influenza with Tamiflu. She was also treated for COPD exacerbation with bronchodilators, and hydrated with IV fluid. Patient respiratory symptoms improved. She remained stable on room air. She also reports improvement in her shortness of breath. Vitals are stable, patient is deemed stable for discharge. She is prescribed Tamiflu to continue treatment for influenza, Advair and albuterol inhaler for COPD. She is informed to follow with Dr. Moralez for further evaluation for COPD. Vital Signs/Physical Exam: Temp Pulse Resp BP Pulse Ox 97.9 F 76 16 153/78 H 95 09/23/22 12:00 09/23/22 12:00 09/23/22 12:00 09/23/22 12:00 09/23/22 12:00 General: Alert, In no apparent distress, Oriented x2 HEENT: Mucous membr. moist/pink Neck: Supple, JVD not distended Respiratory: Clear to auscultation bilaterally, Normal air movement Cardiovascular: Regular rate/rhythm, Normal S1 S2 Gastrointestinal: Soft and benign, Non-distended Musculoskeletal: No swelling Integumentary: No rashes Neurological: Normal strength at 5/5 x4 extr Laboratory Data at Discharge: WBC 6.20 K/uL (4.3-10.9) 09/23/22 03:29 Hgb 14.4 g/dL (12.0-15.0) D 09/23/22 03:29 Hct 43.0 % (36.0-45.0) 09/23/22 03:29 Plt Count 254 K/uL (152-406) 09/23/22 03:29 PT 10.8 SECONDS (9.5-12.5) 09/22/22 17:14 INR 0.98 09/22/22 17:14 Sodium 136 mmol/L (136-145) 09/23/22 03:29 Potassium 4.0 mmol/L (3.5-5.1) 09/23/22 03:29 BUN 15 mg/dL (7-18) 09/23/22 03:29 Creatinine 0.80 mg/dL (0.55-1.02) 09/23/22 03:29 Glucose 154 mg/dL (74-106) H 09/23/22 03:29 Phosphorus 3.5 mg/dL (2.5-4.9) 09/23/22 03:29 Magnesium 2.3 mg/dL (1.6-2.4) 09/23/22 03:29 Total Bilirubin 0.4 mg/dL (0.2-1.0) 09/22/22 17:14 AST 31 U/L (15-37) 09/22/22 17:14 ALT 32 U/L (13-56) 09/22/22 17:14 Alkaline Phosphatase 96 U/L (45-117) 09/22/22 17:14 Triglycerides 113 mg/dL (<150) 09/23/22 03:29 Cholesterol 212 mg/dL (<200) H 09/23/22 03:29 HDL Cholesterol 66 mg/dL (40-60) H 09/23/22 03:29 Cholesterol/HDL Ratio 3.21 09/23/22 03:29 Home Medications: lisinopriL [Prinivil*] 10 mg PO DAILY 09/22/22 Albuterol Inhaler [Ventolin Inhaler*] 2 puff IH Q6H PRN #1 inh 09/23/22 Benzonatate [Tessalon Perle*] 100 mg PO TID PRN #30 cap 09/23/22 Fluticasone/Salmeterol [Advair 250-50 Diskus] 1 each IH BID #1 kit 09/23/22 Oseltamivir [Tamiflu*] 75 mg PO BID #9 cap 09/23/22 New Medications: Fluticasone/Salmeterol [Advair 250-50 Diskus] 1 each IH BID #1 kit Oseltamivir [Tamiflu*] 75 mg PO BID #9 cap Benzonatate [Tessalon Perle*] 100 mg PO TID PRN #30 cap PRN Reason: Cough Albuterol Inhaler [Ventolin Inhaler*] 2 puff IH Q6H PRN #1 inh PRN Reason: Shortness Of Breath Diet: AHA Activity: Ad ori Followup: Obi Alanis MD [ACTIVE - CAN ADMIT] - (Within 2 weeks.)
[2022-09-23 17:14] VITALS: BP 174/79; TEMP 97.6
[2022-09-23 17:16] VITALS: O2SAT 95
== END 2022-09-23 17:44 | disposition home or self-care (01) ==
LOC: ER 16:15 → ERHOLD 19:34 → 2ND 19:46
PROVIDERS: ADMIT Internal Medicine; ATTEND Internal Medicine
DX: J96.01 Acute respiratory failure with hypoxia (principal); J09.X2 Influenza due to identified novel influenza A virus with other respiratory manifestations; I10 Essential (primary) hypertension; J44.9 Chronic obstructive pulmonary disease, unspecified; Z20.822 Contact with and (suspected) exposure to COVID-19
CPT/HCPCS: 87040; 85025 ×2; 81001; 80048 ×2; 36415; 83735 ×2; 84100; 85610; 80061; 80076; 83605; 84443; 84484; 83880; 0240U; 71275; 71045; 94010; 94760; 96375; 96374; 99285; Q9967; J7614; J7613; J7644; J3475; J7030 ×2; J2930; G0378; J1650

== ENCOUNTER 2023-08-07 07:33 | Emergency (ER) | payer BC ==
--- OUTSIDE RECORDS SUMMARY | 2023-08-07 07:36 | XMS REPORT | Continuity of Care Document ---
:1955 Author Organization [facility] t Address [address] [place] [address] Care Team Providers Name Role Phone Werner Love Attending Clinician Unavailable Problems This patient has no known problems. Allergies, Adverse Reactions, Alerts This patient has no known allergies or adverse reactions. Medications This patient has no known medications. Procedures This patient has no known procedures. Encounters Start End Encounter Admission Attending Care Care Encounter Source Date/Time Date/Time Type Type Clinicians Facility Department ID 2023-05-14 Outpatient Love, [facility] [id number] Common 07:56:00 Werner [id number] [facility] 2023-02-04 Outpatient Love, [facility] [id number] Common 08:32:01 Werner [id number] [facility] 2022-10-19 [facility]patient [facility] [id number] Common 16:00:01 [id number] [facility] 2021-11-08 Outpatient [facility] [id number] Common 08:56:03 [facility] Results This patient has no known results.
[2023-08-07 08:01] LABS: Absolute Lymphocytes (CBC) 1.1 K/uL (0.7-4.9); Hematocrit 47.4 % (36.0-45.0); Lymphocytes % 15.2 % (15.3-44.8); MCV 93.6 fL (80-100); MPV 7.5 fL (7.6-11.3); Platelets 283 thou/uL (152-406); RBC Red Blood Cell Count 5.06 M/uL (3.86-4.86)
[2023-08-07] MEDS ORDERED: HYDRALAZINE HCL 25 MG TABLET ONE (08:06)
[2023-08-07 08:21] LABS: Albumin 3.8 g/dL (3.4-5.0); Bilirubin Direct 0.1 mg/dL (0-0.2); Bilirubin Indirect, Calculated 0.4 mg/dL (0.2-0.8); Bilirubin Total 0.5 mg/dL (0.2-1.0); Potassium 3.8 mEq/L (3.5-5.1); Protein, Total 7.4 g/dL (6.4-8.2); Troponin High Sensitivity 3.5 pg/mL (<58.9)
--- NOTE | 2023-08-07 08:39 | ER ---
Nurse's Notes [facility] Name: Danelle Gray Age: 67 yrs Sex: Female : 1955 Arrival Date: 08/07/2023 Time: 07:33 Bed 20 Private MD: Diagnosis: Essential (primary) hypertension Presentation: 08/07 07:44 Chief complaint: Patient states: HTN for a few days. New Coreg isn't helping. BP ll1 244/117 just [employer]. Coronavirus screen: Vaccine status: Patient reports receiving the 2nd dose of the covid vaccine. Client denies travel out of the [place] in the last 14 days. At this time, the client does not indicate any symptoms associated with coronavirus-19. Ebola Screen: Patient denies travel to an Ebola-affected area in the 21 days before illness onset. Initial Sepsis Screen: Does the patient meet any 2 criteria? No. Patient's initial sepsis screen is negative. Does the patient have a suspected source of infection? No. Patient's initial sepsis screen is negative. Risk Assessment: Do you want to hurt yourself or someone else? Patient reports no desire to harm self or others. Onset of symptoms was August 02, 2023. 07:44 Method Of Arrival: Ambulatory ll1 07:44 Acuity: GUILHERME 2 ll1 Triage Assessment: 07:45 General: Appears in no apparent distress. Behavior is calm, cooperative, appropriate ll1 for age. General: Reports high BP. Pain: Denies pain. Historical: - Allergies: 07:43 No Known Allergies; ll1 - PMHx: 07:43 Hypertensive disorder; Chronic obstructive lung disease; ll1 - PSHx: 07:43 Appendectomy; ll1 - Immunization history:: Adult Immunizations up to date. - Social history:: Smoking status: Patient reports the use of cigarette tobacco products, smokes one-half pack cigarettes per day. - Family history:: not pertinent. Screenin:47 [facility] ED Fall Risk Assessment (Adult) Score/Fall Risk Level 0 - 2 = Low Risk ll1 Oriented to surroundings, Maintained a safe environment, Educated pt \T\ family on fall prevention, incl call for assistance when getting out of bed, Hourly rounding (assess needs \T\ fall precautionary measures) done. Abuse screen: Denies threats or abuse. Nutritional screening: No deficits noted. Tuberculosis screening: No symptoms or risk factors identified. Assessment: 07:58 General: Appears in no apparent distress. comfortable, Behavior is calm, cooperative, ld1 appropriate for age. Pain: Denies pain. Neuro: Level of Consciousness is awake, alert, obeys commands, Oriented to person, place, time, situation, Appropriate for age. Cardiovascular: Capillary refill < 3 seconds Patient's skin is warm and dry. Rhythm is sinus bradycardia. Respiratory: Airway is patent Respiratory effort is even, unlabored. GI: Abdomen is flat, non-distended. : No signs and/or symptoms were reported regarding the genitourinary system. EENT: No signs and/or symptoms were reported regarding the EENT system. Derm: No signs and/or symptoms reported regarding the dermatologic system. Musculoskeletal: No signs and/or symptoms reported regarding the musculoskeletal system. 08:22 Reassessment: Patient appears in no apparent distress at this time. No changes from ld1 previously documented assessment. Patient and/or family updated on plan of care and expected duration. Pain level reassessed. Patient is alert, oriented x 3, equal unlabored respirations, skin warm/dry/pink. 08:50 Reassessment: No changes from previously documented assessment. Patient and/or family ll1 updated on plan of care and expected duration. Pain level reassessed. Patient is alert, oriented x 3, equal unlabored respirations, skin warm/dry/pink. Vital Signs: 07:44 BP 218 / 101; Pulse 61; Resp 16; Temp 97.6; Pulse Ox 100% ; Weight 70.31 kg; Height 5 ll1 ft. 4 in. ; Pain 0/10; 07:58 BP 256 / 99; Pulse 52; Resp 18; Pulse Ox 98% on R/A; Pain 0/10; ld1 08:22 BP 183 / 85; Pulse 54; Resp 18; Pulse Ox 96% on R/A; ld1 08:32 BP 183 / 85; ld1 08:50 BP 173 / 95; Pulse 55; Resp 18; Pulse Ox 96% ; ll1 07:44 Body Mass Index 26.61 (70.31 kg, 162.56 cm) ll1 07:44 Pain Scale: Adult ll1 07:58 Pain Scale: Adult ld1 07:58 Notified ERP of BP ld1 ED Course: 07:36 Patient arrived in ED. mg5 07:43 Arm band placed on Patient placed in an exam room, on a stretcher. ll1 07:44 Onel Pillai MD is Attending Physician. rt 07:45 Triage completed. ll1 07:46 Joan Bee RN is Primary Nurse. ll1 07:47 Patient has correct armband on for positive identification. Call light in reach. Client ll1 placed on continuous cardiac and pulse oximetry monitoring. NIBP monitoring applied. personnel monitor on. 07:58 Door closed. Noise minimized. Warm blanket given. ld1 07:58 No provider procedures requiring assistance completed. Inserted saline lock: 20 gauge ld1 in right forearm, using aseptic technique. Blood collected. 08:50 IV discontinued, intact, bleeding controlled, No redness/swelling at site. Pressure ll1 dressing applied. 08:51 Provided Education on: n/a. ll1 Administered Medications: 07:56 Drug: HydrALAZINE PO 50 mg PO once Route: PO; ll1 08:51 Follow up: Response: No adverse reaction ll1 Medication: 07:47 VIS not applicable for this client. ll1 Outcome: 08:38 Discharge ordered by . rt 08:50 Discharged to home ambulatory, ll1 08:50 Condition: stable 08:50 Discharge instructions given to patient, Instructed on discharge instructions, follow up and referral plans. medication usage, Demonstrated understanding of instructions, follow-up care, medications, Prescriptions given X 1, 08:51 Patient left the ED. ll1 Signatures: Joan Bee RN RN ll1 Maral Gorman RN RN ld1 Onel Pillai MD MD rt [place] mg5
--- NOTE | 2023-08-07 08:39 | EDPHYS ---
Physician Documentation [facility] Name: Danelle Gray Age: 67 yrs Sex: Female : 1955 Arrival Date: 08/07/2023 Time: 07:33 Bed 20 Private MD: ED Physician Onel Pillai HPI: 08/07 07:54 This 67 yrs old Female presents to ER via Ambulatory with complaints of High Blood rt Pressure. 07:54 Patient presents to the ED with hypertension. Patient has no symptoms at this time. Has rt been going back and forth to her primary care's office to get the right combination of blood pressure medications. Denies other acute complaints at this time, symptoms are moderate severity, no other aggravating or alleviating factors.. Historical: - Allergies: 07:43 No Known Allergies; ll1 - PMHx: 07:43 Hypertensive disorder; Chronic obstructive lung disease; ll1 - PSHx: 07:43 Appendectomy; ll1 - Immunization history:: Adult Immunizations up to date. - Social history:: Smoking status: Patient reports the use of cigarette tobacco products, smokes one-half pack cigarettes per day. - Family history:: not pertinent. ROS: 07:54 Constitutional: Negative for fever, chills, and weight loss, Cardiovascular: Negative rt for chest pain, palpitations, and edema, Respiratory: Negative for shortness of breath, cough, wheezing, and pleuritic chest pain, Abdomen/GI: Negative for abdominal pain, nausea, vomiting, diarrhea, and constipation, MS/Extremity: Negative for injury and deformity, Skin: Negative for injury, rash, and discoloration, Neuro: Negative for headache, weakness, numbness, tingling, and seizure, Psych: Negative for depression, anxiety, suicide ideation, homicidal ideation, and hallucinations, Exam: 07:54 Constitutional: This is a well developed, well nourished patient who is awake, alert, rt and in no acute distress. Head/Face: Normocephalic, atraumatic. Chest/axilla: Normal chest wall appearance and motion. Nontender with no deformity. No lesions are appreciated. Cardiovascular: Regular rate and rhythm with a normal S1 and S2. No gallops, murmurs, or rubs. Normal PMI, no JVD. No pulse deficits. Respiratory: Lungs have equal breath sounds bilaterally, clear to auscultation and percussion. No rales, rhonchi or wheezes noted. No increased work of breathing, no retractions or nasal flaring. Abdomen/GI: Soft, non-tender, with normal bowel sounds. No distension or tympany. No guarding or rebound. No evidence of tenderness throughout. Skin: Warm, dry with normal turgor. Normal color with no rashes, no lesions, and no evidence of cellulitis. MS/ Extremity: Pulses equal, no cyanosis. Neurovascular intact. Full, normal range of motion. Neuro: Awake and alert, GCS 15, oriented to person, place, time, and situation. Cranial nerves II-XII grossly intact. Motor strength 5/5 in all extremities. Sensory grossly intact. Cerebellar exam normal. Normal gait. Psych: Awake, alert, with orientation to person, place and time. Behavior, mood, and affect are within normal limits. 07:54 ECG was reviewed by the Attending Physician. Vital Signs: 07:44 BP 218 / 101; Pulse 61; Resp 16; Temp 97.6; Pulse Ox 100% ; Weight 70.31 kg; Height 5 ll1 ft. 4 in. ; Pain 0/10; 07:58 BP 256 / 99; Pulse 52; Resp 18; Pulse Ox 98% on R/A; Pain 0/10; ld1 08:22 BP 183 / 85; Pulse 54; Resp 18; Pulse Ox 96% on R/A; ld1 08:32 BP 183 / 85; ld1 08:50 BP 173 / 95; Pulse 55; Resp 18; Pulse Ox 96% ; ll1 07:44 Body Mass Index 26.61 (70.31 kg, 162.56 cm) ll1 07:44 Pain Scale: Adult ll1 07:58 Pain Scale: Adult ld1 07:58 Notified ERP of BP ld1 MDM: 07:44 Patient medically screened. rt 08:40 Differential diagnosis: hypertensive crisis, Essential hypertension, heart failure, rt renal disease. Data reviewed: vital signs, nurses notes. Consideration of Admission/Observation Escalation of care including admission/observation considered. Care significantly affected by the following chronic conditions: Hypertension. Counseling: I had a detailed discussion with the patient and/or guardian regarding the historical points, exam findings, and any diagnostic results supporting the discharge/admit diagnosis, the presence of at least one elevated blood pressure reading (>120/80) during this emergency department visit, lab results, the need for outpatient follow up. Response to treatment: the patient's symptoms have markedly improved after treatment. 08/07 07:51 Order name: Basic Metabolic Panel; Complete Time: 08:24 rt 08/07 07:51 Order name: CBC with Diff; Complete Time: 08:24 rt 08/07 07:51 Order name: LFT's; Complete Time: 08:24 rt 08/07 07:51 Order name: Magnesium; Complete Time: 08:24 rt 08/07 07:51 Order name: NT PRO-BNP; Complete Time: 08:24 rt 08/07 07:51 Order name: Troponin HS; Complete Time: 08:24 rt 08/07 07:51 Order name: EKG; Complete Time: 07:52 rt 08/07 07:51 Order name: Cardiac monitoring; Complete Time: 07:57 rt 08/07 07:51 Order name: EKG - Nurse/Tech; Complete Time: 07:51 rt 08/07 07:51 Order name: IV Saline Lock; Complete Time: 07:56 rt 08/07 07:51 Order name: Labs collected and sent; Complete Time: 07:56 rt 08/07 07:51 Order name: O2 Per Protocol; Complete Time: 07:51 rt 08/07 07:51 Order name: O2 Sat Monitoring; Complete Time: 07:51 rt EC:54 Rate is 58 beats/min. Rhythm is regular, Normal Sinus Rhythm with No ectopy, LVH rt present. QRS [place] is Normal. LA interval is normal. QRS interval is normal. QT interval is normal. No Q waves. Administered Medications: 07:56 Drug: HydrALAZINE PO 50 mg PO once Route: PO; ll1 08:51 Follow up: Response: No adverse reaction ll1 Disposition Summary: 08/07/23 08:38 Discharge Ordered Notes: Location: Home rt Problem: an acute exacerbation rt Symptoms: have improved rt Condition: Stable rt Diagnosis - Essential (primary) hypertension rt Followup: rt - With: Private Physician - When: 5 - 6 days - Reason: Discharge Instructions: - Discharge Summary Sheet rt - Hypertension, Adult rt Forms: - Medication Reconciliation Form rt - Thank You Letter rt - Antibiotic Education rt - Prescription Opioid Use rt - Patient Portal Instructions rt - Leadership Thank You Letter rt Prescriptions: - Hydralazine 25 mg Oral tablet - take 1 tablet ORAL route 4 times per day with food; 120 tablet; Refills: 0, rt Product Selection Permitted Signatures: Dispatcher [employer] Joan Fernando RN RN ll1 Onel Pillai MD MD rt
[2023-08-07 09:33] VITALS: TEMP 97.6
[2023-08-07 09:40] VITALS: O2SAT 96
[2023-08-07 09:41] VITALS: BP 173/95
--- NOTE | 2023-08-08 09:50 | EKG ---
Test Date: 2023-08-07 Test Time: 07:47:37 [employer]: ZOE MEASUREMENT RESULTS: Intervals: Rate: 58 IL: 118 QRSD: 86 QT: 418 QTc: 410 [place]: P: 66 IL: 118 QRS: 86 T: 102 INTERPRETIVE STATEMENTS: Sinus bradycardia Nonspecific T wave abnormality Abnormal ECG Compared to ECG 04/27/2014 14:57:55 T-wave abnormality now present Sinus tachycardia no longer present ST (T wave) deviation no longer present Possible ischemia no longer present Electronically Signed On 08-08-23 09:46:30 CDT by Amish Schulz
== END 2023-08-07 08:51 | disposition home or self-care (01) ==
LOC: ER 07:33
DX: I10 Essential (primary) hypertension (principal); J44.9 Chronic obstructive pulmonary disease, unspecified; F17.210 Nicotine dependence, cigarettes, uncomplicated
CPT/HCPCS: 36415; 80048; 80076; 83735; 83880; 84484; 85025; 93005; 99284

== ENCOUNTER 2023-08-08 08:14 | Emergency (ER) | payer BC ==
[2023-08-08] MEDS ORDERED: HYDRALAZINE HCL 25 MG TABLET ONE (08:52)
--- OUTSIDE RECORDS SUMMARY | 2023-08-08 09:03 | XMS REPORT | Continuity of Care Document ---
:1955 Author Organization [facility] t Address [address] [place] [address] Care Team Providers Name Role Phone Werner [...] Facility Department ID 2023-05-14 Outpatient Love, [facility] [id number] Common 07:56:00 Werner [id number] [facility] 2023-02-04 Outpatient Love, [facility] [id number] Common 08:32:01 Werner [id number] [facility] 2022-10-19 [facility]patient [facility] [id number] Common 16:00:01 [id number] [facility] 2021-11-08 Outpatient [facility] [id number] Common 08:56:03 [facility] Results This patient has no known results.
--- NOTE | 2023-08-08 09:23 | EDPHYS ---
Physician Documentation [facility] Name: Danelle Gray Age: 67 yrs Sex: Female : 1955 Arrival Date: 08/08/2023 Time: 08:14 Bed 13 Private MD: ED Physician Onel Pillai HPI: 08/08 08:17 This 67 yrs old Female presents to ER via Ambulatory with complaints of High Blood jh7 Pressure. 08:17 The patient has elevated blood pressure and discovered this at work. Onset: The jh7 symptoms/episode began/occurred last night. Associated signs and symptoms: Pertinent positives: headache, Pertinent negatives: chest pain, dizziness, dyspnea, lightheadedness, nausea, visual changes, vomiting, weakness. Severity of symptoms: in the emergency department the blood pressure is 217/105. 67-year-old female presents to the ER complaining of hypertension. She states that she was seen yesterday morning for the same thing. She only reports a slight headache, but no chest pain, shortness of breath, dizziness, or any other symptoms at this time. Reports that she took 25 mg of hydralazine as scheduled last night and that her blood pressure stayed elevated.. Historical: - Allergies: 08:17 No Known Allergies; ll1 - PMHx: 08:17 Chronic obstructive lung disease; Hypertensive disorder; ll1 - PSHx: 08:17 Appendectomy; ll1 - Immunization history:: Adult Immunizations up to date. - Social history:: Smoking status: Patient denies any tobacco usage or history of. ROS: 08:17 Constitutional: Negative for fever, chills, and weight loss, Eyes: Negative for injury, jh7 pain, redness, and discharge, Neck: Negative for injury, pain, and swelling, Cardiovascular: Negative for chest pain, palpitations, and edema, Respiratory: Negative for shortness of breath, cough, wheezing, and pleuritic chest pain, Abdomen/GI: Negative for abdominal pain, nausea, vomiting, diarrhea, and constipation, MS/Extremity: Negative for injury and deformity, Skin: Negative for injury, rash, and discoloration, 08:17 Neuro: Positive for headache, Negative for altered mental status, dizziness, hearing loss, seizure activity, speech changes, syncope, visual changes, 08:17 All other systems are negative, Exam: 08:17 Constitutional: This is a well developed, well nourished patient who is awake, alert, jh7 and in no acute distress. Head/Face: Normocephalic, atraumatic. Eyes: Pupils equal round and reactive to light, extra-ocular motions intact. Lids and lashes normal. Conjunctiva and sclera are non-icteric and not injected. Cornea within normal limits. Periorbital areas with no swelling, redness, or edema. Cardiovascular: Regular rate and rhythm with a normal S1 and S2. No gallops, murmurs, or rubs. Normal PMI, no JVD. No pulse deficits. Respiratory: Lungs have equal breath sounds bilaterally, clear to auscultation and percussion. No rales, rhonchi or wheezes noted. No increased work of breathing, no retractions or nasal flaring. Abdomen/GI: Soft, non-tender, with normal bowel sounds. No distension or tympany. No guarding or rebound. No evidence of tenderness throughout. Skin: Warm, dry with normal turgor. Normal color with no rashes, no lesions, and no evidence of cellulitis. MS/ Extremity: Pulses equal, no cyanosis. Neurovascular intact. Full, normal range of motion. Neuro: Awake and alert, GCS 15, oriented to person, place, time, and situation. Motor strength 5/5 in all extremities. Sensory grossly intact. Normal gait. 08:45 ECG was reviewed by the Attending Physician. [facility] Vital Signs: 08:22 BP 217 / 105; Pulse 62; Resp 16; Temp 97.6; Pulse Ox 99% ; Weight 70.31 kg; Height 5 ll1 ft. 4 in. ; Pain 4/10; 08:43 BP 199 / 102; Pulse 57; Resp 18 S; Pulse Ox 98% on R/A; kc6 09:16 BP 177 / 81; Pulse 65; Resp 18 S; Pulse Ox 98% on R/A; kc6 09:21 BP 137 / 76; kc6 08:22 Body Mass Index 26.61 (70.31 kg, 162.56 cm) ll1 08:22 Pain Scale: Adult ll1 MDM: 08:17 Patient medically screened. [facility] 09:00 Differential diagnosis: hypertensive crisis, Malignant HTN. Data interpreted: Pulse [facility] oximetry: is 98 %. Interpretation: normal. Data reviewed: vital signs, nurses notes, EKG. I considered the following discharge prescriptions or medication management in the emergency department Medications were administered in the Emergency Department. See MAR. Independent interpretation of the following test(s) in the Emergency Department EKG: See my EKG interpretation above. Care significantly affected by the following chronic conditions: Hypertension. Counseling: I had a detailed discussion with the patient and/or guardian regarding the historical points, exam findings, and any diagnostic results supporting the discharge/admit diagnosis, the need for outpatient follow up, a informatics scientist, to return to the emergency department if symptoms worsen or persist or if there are any questions or concerns that arise at home. Response to treatment: the patient's symptoms have markedly improved after treatment. 08/08 08:31 Order name: EKG - Nurse/Tech; Complete Time: 08:42 jh7 08/08 08:54 Order name: Recheck Blood Pressure: \T\[id number]; Complete Time: 09:17 jh7 EC:45 Rate is 59 beats/min. Rhythm is regular. QRS [place]vin is Normal. ME interval is normal at 7 118 msec. QRS interval is normal at 86 msec. QT interval is normal at 424 msec. No Q waves. Clinical impression: Sinus bradycardia. No change from previous ECG on August 07, 2023. Previous findings: Sinus bradycardia. Administered Medications: 08:33 Not Given (Physician Discretion): clonidine0.2 mg PO once jh7 08:42 Drug: HydrALAZINE PO 50 mg PO once Route: PO; 6 09:29 Follow up: Response: No adverse reaction; Blood pressure is lowered [facility] Disposition: 10:08 Co-signature as Attending Physician, Onel Pillai MD I reviewed the patient's care rt provided by the Advanced Practice Provider and agree with the diagnosis and treatment plan. Disposition Summary: 08/08/23 09:22 Discharge Ordered Notes: Location: Home [facility] Problem: new [facility] Symptoms: have improved [facility] Condition: Stable [facility] Diagnosis - Essential (primary) hypertension [facility] Followup: [facility] - With: Private Physician - When: 2 - 3 days - Reason: Recheck today's complaints Discharge Instructions: - Discharge Summary Sheet 7 - Hypertension, Adult [facility] - Managing Your Hypertension [facility] Forms: - Medication Reconciliation Form [facility] - Thank You Letter [facility] - Patient Portal Instructions [facility] - Leadership Thank You Letter [facility] Signatures: Joan Bee RN RN ll1 Zadnra Molina, MACHINE INSTALLER MACHINE INSTALLER jh7 Megan Stubbs RN RN kc6 Onel Pillai MD MD rt
--- NOTE | 2023-08-08 09:23 | ER ---
Nurse's Notes [facility] Name: Danelle Gray Age: 67 yrs Sex: Female : 1955 Arrival Date: 08/08/2023 Time: 08:14 Bed 13 Private MD: Diagnosis: Essential (primary) hypertension Presentation: 08/08 08:17 Chief complaint: Patient states: HTN with BERRIOS today. Here yesterday for the same, ll1 Lopressor isn't helping. Coronavirus screen: Vaccine status: Patient reports receiving the 2nd dose of the covid vaccine. Client denies travel out of the [place] in the last 14 days. At this time, the client does not indicate any symptoms associated with coronavirus-19. Ebola Screen: Patient denies travel to an Ebola-affected area in the 21 days before illness onset. Initial Sepsis Screen: Does the patient meet any 2 criteria? No. Patient's initial sepsis screen is negative. Does the patient have a suspected source of infection? No. Patient's initial sepsis screen is negative. Risk Assessment: Do you want to hurt yourself or someone else? Patient reports no desire to harm self or others. Onset of symptoms was August 01, 2023. 08:17 Method Of Arrival: Ambulatory ll1 08:17 Acuity: GUILHERME 3 ll1 Triage Assessment: 08:24 General: Appears in no apparent distress. Behavior is calm, cooperative, appropriate ll1 for age. Pain: Complains of pain in head Pain currently is 4 out of 10 on a pain scale. Quality of pain is described as aching. Neuro: Reports headache high BP. Historical: - Allergies: 08:17 No Known Allergies; ll1 - PMHx: 08:17 Chronic obstructive lung disease; Hypertensive disorder; ll1 - PSHx: 08:17 Appendectomy; ll1 - Immunization history:: Adult Immunizations up to date. - Social history:: Smoking status: Patient denies any tobacco usage or history of. Screenin:43 [facility] ED Fall Risk Assessment (Adult) History of falling in the last 3 months, kc6 including since admission No falls in past 3 months (0 pts) Confusion or Disorientation No (0 pts) Intoxicated or Sedated No (0 pts) Impaired Gait No (0 pts) Mobility Assist Device Used No (0 pt) Altered Elimination No (0 pt) Score/Fall Risk Level 0 - 2 = Low Risk. Abuse screen: Denies threats or abuse. Denies injuries from another. Nutritional screening: No deficits noted. Tuberculosis screening: No symptoms or risk factors identified. Assessment: 08:43 General: Appears in no apparent distress. comfortable, Behavior is calm, cooperative, kc6 appropriate for age. Neuro: Level of Consciousness is awake, alert, obeys commands, Oriented to person, place, time, situation, Appropriate for age Reports headache. Cardiovascular: Denies chest pain, Heart tones S1 S2 present Capillary refill < 3 seconds. Respiratory: Airway is patent Trachea midline Respiratory effort is even, unlabored, Respiratory pattern is regular, symmetrical, Denies shortness of breath. GI: No signs and/or symptoms were reported involving the gastrointestinal system. : No signs and/or symptoms were reported regarding the genitourinary system. EENT: No signs and/or symptoms were reported regarding the EENT system. Derm: No signs and/or symptoms reported regarding the dermatologic system. Skin is intact, is healthy with good turgor, Skin is pink, warm \T\ dry. Musculoskeletal: No signs and/or symptoms reported regarding the musculoskeletal system. Circulation, motion, and sensation intact. Capillary refill < 3 seconds, Range of motion: intact in all extremities. Vital Signs: 08:22 BP 217 / 105; Pulse 62; Resp 16; Temp 97.6; Pulse Ox 99% ; Weight 70.31 kg; Height 5 ll1 ft. 4 in. ; Pain 4/10; 08:43 BP 199 / 102; Pulse 57; Resp 18 S; Pulse Ox 98% on R/A; kc6 09:16 BP 177 / 81; Pulse 65; Resp 18 S; Pulse Ox 98% on R/A; kc6 09:21 BP 137 / 76; kc6 08:22 Body Mass Index 26.61 (70.31 kg, 162.56 cm) ll1 08:22 Pain Scale: Adult ll1 ED Course: 08:16 Patient arrived in ED. im 08:17 Zandra Molina FNP is PHCP. jh7 08:17 Onel Pillai MD is Attending Physician. jh7 08:17 Arm band placed on Patient placed in an exam room, on a stretcher. ll1 08:18 Triage completed. ll1 08:35 Stubbs, Megan, RN is Primary Nurse. 6 08:43 Patient has correct armband on for positive identification. Bed in low position. Call kc6 light in reach. Side rails up X 1. Client placed on continuous cardiac and pulse oximetry monitoring. NIBP monitoring applied. playground monitor on. :29 No provider procedures requiring assistance completed. Patient did not have IV access kc6 during this emergency room visit. Administered Medications: 08:33 Not Given (Physician Discretion): clonidine0.2 mg PO once [facility] 08:42 Drug: HydrALAZINE PO 50 mg PO once Route: PO; 6 09:29 Follow up: Response: No adverse reaction; Blood pressure is lowered 6 Medication: : VIS not applicable for this client. 6 Outcome: : Discharge ordered by . 7 :29 Discharged to home ambulatory, kc6 09:29 Condition: improved :29 Discharge instructions given to patient, Instructed on discharge instructions, follow up and referral plans. Demonstrated understanding of instructions, follow-up care, :29 Patient left the ED. [facility] Signatures: Joan Bee RN RN 1 Zandra Molina, BULLET LUBRICANT MIXER BULLET LUBRICANT MIXER 7 Megan Stubbs, RN RN 6 Maria Esther Santiago Corrections: (The following items were deleted from the chart) 08:24 08:17 Chief complaint: Patient states: HTN. Here yesterday for the same 1 1
[2023-08-08 09:34] VITALS: TEMP 97.6
[2023-08-08 09:36] VITALS: O2SAT 98
[2023-08-08 09:39] VITALS: BP 137/76
== END 2023-08-08 09:29 | disposition home or self-care (01) ==
LOC: ER 08:14
DX: I10 Essential (primary) hypertension (principal); J44.9 Chronic obstructive pulmonary disease, unspecified
CPT/HCPCS: 93005; 99284

== ENCOUNTER 2023-09-13 13:00 | Day surgery (SDC) | payer BC, OTHER ==
[2023-09-12 14:42] LABS: Absolute Lymphocytes (CBC) 1.1 K/uL (0.7-4.9); Lymphocytes % 14.3 % (15.3-44.8); MCV 94.4 fL (80-100); MPV 7.5 fL (7.6-11.3); Platelets 312 thou/uL (152-406); RBC Red Blood Cell Count 4.55 M/uL (3.86-4.86)
[2023-09-12 14:46] LABS: Protime INR 1.02
[2023-09-12 14:55] LABS: Potassium 4.4 mEq/L (3.5-5.1)
--- NOTE | 2023-09-12 17:07 | RAD REPORT ---
EXAM DESCRIPTION: RAD - Chest Pa And Lat (2 Views) - 09/12/2023 2:55 pm CLINICAL HISTORY: pre op pending abdominal/renal angiogram/hypertens COMPARISON: 09/22/2022 and 04/27/2014 TECHNIQUE: PA and lateral views of the chest were obtained. FINDINGS: The lungs are clear. Diffuse hyperinflation, may suggest COPD. Heart size is normal and ce ntral vasculature is within normal limits. No pleural effusion or pneumothorax seen. No acute bony fi nding noted. IMPRESSION: No acute cardiopulmonary process.
[2023-09-13] MEDS ORDERED: NA CHLORIDE 0.9% 500 ML ONE (13:34)
[2023-09-13] MEDS ORDERED: HEPA 1000U/500MLS 2,000 UNIT/1,000 ML BAG IV ONE (13:58)
[2023-09-13] MEDS ORDERED: LIDOCAINE 1% 20 ML MDV ONE (13:58)
[2023-09-13] MEDS ORDERED: VERAPAMIL HCL 10 MG/4 ML VIAL IV ONE (13:58)
[2023-09-13] MEDS ORDERED: FENTANYL CITR 100 MCG/2 ML ONE (13:59)
[2023-09-13] MEDS ORDERED: MIDAZOLAM HCL 2 MG/2 ML INJ ONE (14:00)
[2023-09-13] MEDS ORDERED: HEPARIN 5000 UNIT/ML 1 ML VIAL ONE (14:00)
[2023-09-13 16:39] VITALS: TEMP 98; O2SAT 100
[2023-09-13 16:59] VITALS: BP 132/72
--- NOTE | 2023-09-14 00:10 | OP ---
Date of Procedure: 09/13/2023 Surgeon: KYLIE GAN Procedures Performed: 1.Bilateral renal angiogram, selective. 2.Peripheral angiogram with runoff. Indications: 1.Renal artery stenosis. 2.Peripheral vascular disease with claudication. Access: Right radial artery 6-Faroese closed with TR band. Complications: None. Bleeding: Less than 20 mL. Anesthesia: Total sedation time was 50 minutes. Description Of Procedure: After risks, benefits, alternatives were explained, patient agreed to the procedure and signed informed consent. Patient was brought into the cardiac catheterization laborato , prepped and draped in the usual sterile fashion. Then, I accessed right radial artery using pedi atric micropuncture kit, placed a 6-Faroese Slender sheath and then we took a long JR4 catheter into t he abdominal aorta, engaged the left and right renal arteries and took standard views and then I exch anged for a long 4-Faroese pigtail catheter, placed in the distal aorta, performed distal aortogram wi th runoff. I then removed the catheter and the sheath, placed TR band with good hemostasis. Findings: Renal angiogram: 1.Right renal artery is normal. 2.Left renal artery has ostial 70% to 80% stenosis. Peripheral angiogram: 1.Distal aorta is widely patent. 2.Right lower extremity has a common iliac with 60% stenosis. External iliac is widely patent. The right common femoral has focal 70% stenosis. The right profunda is patent and the right SFA is plunkett nt all the way to above the knee with 100% occluded, reconstitutes above the knee and then below the knee three vessel runoff are present, but the anterior tibial has proximal 70% stenosis. 3.Left lower extremity: The left common iliac is normal. The left external iliac has a focal 50% s tenosis and the left common femoral is normal. Left profunda is patent with mild disease. The left SFA has proximal 60%, mid 50% to 60%, and then the popliteal artery is normal and then the anterior t ibial on the left has 80% stenosis. The peroneal and the posterior tibial are patent. Conclusion: 1.Severe left renal artery stenosis. Plan for a staged intervention at [place]. 2.Severe right lower extremity peripheral vascular disease. Plan for a staged intervention at [facility] [place] as well. She needs atherectomy and today due to the as above. SR/MODL Voice ID: [id number] Report ID: [id number]
--- NOTE | 2023-09-17 14:02 | EKG ---
Test Date: 2023-09-12 Test Time: 15:21:23 Wash Driller: NATHALIA MEASUREMENT RESULTS: Intervals: Rate: 73 IL: 110 QRSD: 88 QT: 386 QTc: 425 [place]: P: 16 IL: 110 QRS: 59 T: 170 INTERPRETIVE STATEMENTS: Sinus rhythm with short IL ST & T wave abnormality, consider inferolateral ischemia Abnormal ECG Compared to ECG 08/08/2023 08:45:10 Short IL interval now present Sinus bradycardia no longer present ST (T wave) deviation still present Possible ischemia still present Electronically Signed On 09-17-23 13:45:48 [employer] by Amish Schulz
== END 2023-09-13 16:45 | disposition home or self-care (01) ==
LOC: CCL 13:00
PROVIDERS: ATTEND Internal Medicine
DX: I70.223 Atherosclerosis of native arteries of extremities with rest pain, bilateral legs (principal); I70.92 Chronic total occlusion of artery of the extremities; I70.1 Atherosclerosis of renal artery; I10 Essential (primary) hypertension; I51.7 Cardiomegaly; R09.89 Other specified symptoms and signs involving the circulatory and respiratory systems; F17.210 Nicotine dependence, cigarettes, uncomplicated; Z79.899 Other long term (current) drug therapy; Z79.82 Long term (current) use of aspirin; Z82.49 Family history of ischemic heart disease and other diseases of the circulatory system
CPT/HCPCS: 93005; 85025; 80048; 36415; 83721; 85610; 85730; 71046; 75630; 36252; 76937; C1893; J1644; J2001; J2250; J3010; J7040; 99152; 99153

== ENCOUNTER 2024-05-14 11:15 | Day surgery (SDC) | payer BC, OTHER ==
[2024-05-12 10:12] LABS: Absolute Eosinophils 0.1 K/uL (0-0.5); Absolute Lymphocytes (CBC) 0.9 K/uL (0.7-4.9); Absolute Monocytes 0.5 K/uL (0.1-1.3); Absolute Neutrophil 7.6 K/uL (1.8-8.0); Basophils % 0.5 % (0-1.3); Eosinophils % 0.6 % (0-4.4); Hematocrit 41.9 % (36.0-45.0); Hemoglobin 14.4 g/dL (12.0-15.0); Lymphocytes % 9.7 % (15.3-44.8); MCH 31.4 pg (27.0-35.0); MCHC 34.4 g/dL (32.0-36.0); MCV 91.3 fL (80-100); MPV 7.2 fL (7.6-11.3); Monocytes % 5.8 % (3.3-12.3); Neutrophils % 83.4 % (41.7-73.7); Nucleated Red Blood Cells % 0.1 % (0-0); Platelets 341 thou/uL (152-406); RBC Red Blood Cell Count 4.58 M/uL (3.86-4.86); Red Cell Distribution Width 13.4 % (12.1-15.2)
[2024-05-12 10:28] LABS: PT Prothrombin Time 10.5 SECONDS (9.4-12.5); PTT, Activated Partial Thromb 31.3 SECONDS (24.3-36.9); Protime INR 0.94
--- NOTE | 2024-05-12 10:34 | RAD REPORT ---
EXAM DESCRIPTION: RAD - Chest Pa And Lat (2 Views) - 05/12/2024 10:24 am CLINICAL HISTORY: Pre op pending renal angiogram Chest pain. COMPARISON: Chest Pa And Lat (2 Views) dated 09/12/2023; Chest Single View dated 09/22/2022; CHEST SI NGLE VIEW dated 04/27/2014 TECHNIQUE: PA and lateral views of the chest were obtained. FINDINGS: The lungs are hyperexpanded compatible with COPD. The heart is upper limit of normal in si ze. No fracture or aggressive bony process. IMPRESSION: COPD without acute process identified. The USPSTF recommends annual screening for lung cancer with low-dose CT (LDCT) in adults aged 50 to 8 0 years who have a 20 pack-year smoking history and currently smoke or have quit within the past 15 y ears.
[2024-05-14] MEDS ORDERED: NA CHLORIDE 0.9% 500 ML ONE (11:16)
--- NOTE | 2024-05-14 13:13 | EKG ---
Test Date: 2024-05-12 Test Time: 10:07:42 Commercial Subcontractor: MEASUREMENT RESULTS: Intervals: Rate: 73 DC: 100 QRSD: 88 QT: 384 QTc: 423 [place]: P: 50 DC: 100 QRS: 83 T: 160 INTERPRETIVE STATEMENTS: Sinus rhythm with short DC ST & T wave abnormality, consider inferolateral ischemia Abnormal ECG Compared to ECG 09/12/2023 15:21:23 No significant changes Electronically Signed On 05-14-24 13:06:34 CDT by Amish Schulz
[2024-05-14] MEDS ORDERED: LIDOCAINE 1% 20 ML MDV ONE (13:32)
[2024-05-14] MEDS ORDERED: HEPA 1000U/500MLS 2,000 UNIT/1,000 ML BAG IV ONE (13:32)
[2024-05-14] MEDS ORDERED: ATROPINE SULF 1 MG/10 ML SYR IV ONE (13:32)
[2024-05-14] MEDS ORDERED: VERAPAMIL HCL 10 MG/4 ML VIAL IV ONE (13:32)
[2024-05-14] MEDS ORDERED: MIDAZOLAM HCL 2 MG/2 ML INJ ONE (13:33)
[2024-05-14] MEDS ORDERED: HEPARIN 10,000 UNIT/10 ML VIAL IV ONE (13:33)
[2024-05-14] MEDS ORDERED: HEPARIN 5000 UNIT/ML 1 ML VIAL ONE (13:33)
[2024-05-14] MEDS ORDERED: FENTANYL CITR 100 MCG/2 ML ONE (13:34)
[2024-05-14] MEDS ORDERED: HEPA 1000U/500MLS 1,000 UNIT/500 ML BAG IV ONE (15:55)
[2024-05-14 17:46] VITALS: TEMP 97.5
[2024-05-14 21:02] VITALS: O2SAT 95
[2024-05-14 21:22] VITALS: BP 143/74
--- NOTE | 2024-05-15 02:17 | OP ---
Date of Procedure: 05/14/2024 Surgeon: KYLIE GAN Procedure Performed: 1.Selective left renal artery angiogram. 2.Balloon angioplasty of severe left renal artery stenosis followed by a stent placement. I used He rculink stent 6 x 80 mm with excellent results. Indication: Left renal artery stenosis. Access: 1.Left common femoral artery 7-Luxembourger, closed with manual pressure. 2.Right radial artery 6-Luxembourger, closed with TR band. Complications: None. Bleeding: Less than 50 mL. Anesthesia: Total sedation time was more than 1 hour, used fentanyl and Versed. Description Of Procedure: After risks, benefits, symptoms were explained, patient agreed to the proc edure and signed informed consent. The patient was brought into cardiac catheterization laboratory, prepped and draped in sterile fashion. Then, I accessed the right radial artery using pediatric micr opuncture kit and placed a 6-Luxembourger sheath and I took FRANCESCO guide into the abdominal aorta; however, I could not reach the renal arteries and there was no long FRANCESCO guide present, so I then took the compon ents out and I accessed the left common femoral artery. Using micropuncture kit, ultrasound guidance , and fluoroscopy, I placed a 7-Luxembourger Pollock sheath, then took a 7-Luxembourger guide as there is was no 6-Luxembourger guide available. We took a short guide and then engaged the renal artery, performed angiog ave. Gave systemic heparin to assure HCT level above 250 throughout the procedure and took a run-thr ough wire into the renal artery and then used a 5-0 noncompliant balloon to pre dilate the lesion, wh ich expanded successfully and then I took 6 x 18 mm Herculink stent placed across the stenosis. Exce llent expansion, 0% residual stenosis, and ABDIFATAH-3 flow at the and then removed the wire. Final angio gram was satisfactory and removed the guide and sheath. Manual pressure was used for closure for the left groin and the right radial sheath was removed and TR band was placed with good hemostasis. Findings: Severe left renal artery ostial and proximal stenosis, 80%, status post successful angiopl asty and Herculink stent placement, 6 x 80 mm. Plan: Aspirin, Plavix, and high-dose statin, and monitor with a renal artery Doppler periodically. SR/MODL Voice ID: [id number] Report ID: [id number]
== END 2024-05-14 21:23 | disposition home or self-care (01) ==
LOC: PRE 11:15 → CCL 21:23
PROVIDERS: ATTEND Internal Medicine
DX: I70.1 Atherosclerosis of renal artery (principal); I70.223 Atherosclerosis of native arteries of extremities with rest pain, bilateral legs; I65.22 Occlusion and stenosis of left carotid artery; I10 Essential (primary) hypertension; I51.7 Cardiomegaly; E78.2 Mixed hyperlipidemia; F17.210 Nicotine dependence, cigarettes, uncomplicated; Z79.02 Long term (current) use of antithrombotics/antiplatelets; Z79.82 Long term (current) use of aspirin; Z82.49 Family history of ischemic heart disease and other diseases of the circulatory system
CPT/HCPCS: 93005; 85025; 80048; 36415 ×2; 84132; 85610; 85347 ×4; 85730; 71046; 37236; 36252; C1893; C1725; C1887 ×2; J1644; J2001; J2250; J3010; J7040; 36251; J0461

== ENCOUNTER 2024-12-24 11:15 | Day surgery (SDC) | payer OTHER ==
[2024-12-15 10:44] LABS: Absolute Basophils 0.1 K/uL (0-0.5); Absolute Eosinophils 0.1 K/uL (0-0.5); Absolute Monocytes 0.6 K/uL (0.1-1.3); Absolute Neutrophil 5.3 K/uL (1.8-8.0); Basophils % 0.9 % (0-1.3); Eosinophils % 1.1 % (0-4.4); Hematocrit 44.9 % (36.0-45.0); Hemoglobin 15.5 g/dL (12.0-15.0); Lymphocytes % 13.9 % (15.3-44.8); MCH 31.7 pg (27.0-35.0); MCHC 34.5 g/dL (32.0-36.0); MCV 91.8 fL (80-100); MPV 7.8 fL (7.6-11.3); Neutrophils % 76.1 % (41.7-73.7); Nucleated Red Blood Cells % 0.1 % (0-0); Platelets 334 thou/uL (152-406); RBC Red Blood Cell Count 4.89 M/uL (3.86-4.86); Red Cell Distribution Width 13.8 % (12.1-15.2)
--- NOTE | 2024-12-15 10:55 | EKG ---
Test Date: 2024-12-15 Test Time: 10:27:28 Gift Shop Manager: MELA MEASUREMENT RESULTS: Intervals: Rate: 75 SC: 132 QRSD: 82 QT: 388 QTc: 433 [place]: P: 77 SC: 132 QRS: 79 T: 140 INTERPRETIVE STATEMENTS: Normal sinus rhythm Possible Left atrial enlargement ST & T wave abnormality, consider anterior ischemia Abnormal ECG Compared to ECG 05/12/2024 10:07:42 Short SC interval no longer present ST (T wave) deviation still present Possible ischemia still present Electronically Signed On 12-15-24 10:55:27 CDT by Lee Valverde
[2024-12-15 10:59] LABS: Anion Gap 6.9 mEq/L (5.0-15.0); Potassium 4.9 mEq/L (3.5-5.1)
[2024-12-15 11:02] LABS: PT Prothrombin Time 10.9 SECONDS (10-13.0); PTT, Activated Partial Thromb 34.5 SECONDS (27.2-37.4); Protime INR 0.95
--- NOTE | 2024-12-15 12:14 | RAD REPORT ---
EXAMINATION: TWO VIEW CHEST XR CLINICAL INDICATION: Female, 68 years old. [facility] Pre-op pending renal angiogram. Hypertension TECHNIQUE: 2 view radiographs of the chest were performed. COMPARISON: 05/12/2024 FINDINGS: The lungs are well inflated and clear. No pneumothorax or sizable effusion. The heart is normal in si ze. Mediastinal contours are unremarkable. IMPRESSION: No acute or significant abnormalities.
[2024-12-24] MEDS ORDERED: NA CHLORIDE 0.9% 500 ML ONE (11:52)
[2024-12-24] MEDS ORDERED: LIDOCAINE 1% 20 ML MDV ONE (12:45)
[2024-12-24] MEDS ORDERED: HEPA 1000U/500MLS 2,000 UNIT/1,000 ML BAG IV ONE (12:45)
[2024-12-24] MEDS ORDERED: HEPARIN 10,000 UNIT/10 ML VIAL IV ONE (12:45)
[2024-12-24] MEDS ORDERED: MIDAZOLAM HCL 2 MG/2 ML INJ ONE (13:17)
[2024-12-24] MEDS ORDERED: FENTANYL CITR 100 MCG/2 ML ONE (13:18)
[2024-12-24] MEDS ORDERED: ACETAMINOPHEN 325 MG TABLET ONE (15:22)
[2024-12-24 16:36] VITALS: BP 150/78; O2SAT 99
--- NOTE | 2024-12-24 20:56 | OP ---
Date of Procedure: 12/24/2024 Surgeon: KYLIE GAN Procedure Performed: Bilateral selective renal angiogram. Indication: Renal artery stenosis by Doppler. Access: Right common femoral artery 6-Moldovan closed with 6-Moldovan Mynx closure device. Complications: None. Bleeding: Less than 50 mL. Anesthesia: Total sedation time was 45 minutes. Used fentanyl and Versed. Description Of Procedure: After risks, benefits, and alternatives were explained, patient agreed to procedure and signed informed consent. The patient was brought into cardiac catheterization laborato , prepped and draped in sterile fashion. Then, I accessed right common femoral artery using microp uncture kit, ultrasound guidance, fluoroscopy, placed 6-Moldovan Redford sheath and took a 6-Moldovan IM A catheter into the abdominal aorta, engaged the left renal artery and obtained standard views and th en the right renal artery, obtained standard views and then removed the catheter and the sheath and 6 -Moldovan Mynx closure device was used for closure with good hemostasis. Findings: 1. Right renal artery is normal. 2. Left renal artery has a stent in the proximal segment with 20% to 30% in-stent restenosis. Pressu re inside the artery is similar to the aorta pressure not causing any significant limitation with nicole w. Conclusion: Patent left renal artery stent with mild in-stent restenoses. Recommendation: Medical management. SR/MODL Voice ID: [id number] Report ID: [id number]
== END 2024-12-24 14:30 | disposition home or self-care (01) ==
LOC: CCL 11:15
PROVIDERS: ATTEND Internal Medicine
DX: T82.856A Stenosis of peripheral vascular stent, initial encounter (principal); Q27.1 Congenital renal artery stenosis; I65.23 Occlusion and stenosis of bilateral carotid arteries; I70.203 Unspecified atherosclerosis of native arteries of extremities, bilateral legs; I10 Essential (primary) hypertension; E78.2 Mixed hyperlipidemia; F17.210 Nicotine dependence, cigarettes, uncomplicated; Z79.899 Other long term (current) drug therapy; Z79.02 Long term (current) use of antithrombotics/antiplatelets; Z82.49 Family history of ischemic heart disease and other diseases of the circulatory system
CPT/HCPCS: 93005; 85025; 80048; 36415; 85610; 85730; 71046; 36252; 76937; C1893; C1887; J2003; J2250; J3010; J7040; C1760; 99152; 99153